=== PATIENT | female | born 1935 | race Caucasian/White ===

== ENCOUNTER 2016-08-09 09:52 | Outpatient (CLI) | payer MEDICARE, OTHER | END 2016-08-09 09:53 | disposition home or self-care (01) | DX: M79.672 Pain in left foot (principal); M19.072 Primary osteoarthritis, left ankle and foot ==

== ENCOUNTER 2016-09-30 16:07 | Outpatient (CLI) | payer MEDICARE, OTHER ==
--- NOTE | 2016-10-01 10:50 | XRAY Report ---
THREE VIEW RIGHT SHOULDER: 09/30/2016 CLINICAL HISTORY: Pain. FINDINGS: Degenerative changes are noted involving the glenohumeral joint with marked narrowing, sub chondral sclerosis and osteophytic formation. Mild degenerative changes are present at the AC joint. There is no fracture or focus of destruction. The soft tissues are within normal limits. The visualized lung apex is clear. NOTE: Diffuse demineralization does limit full characterization of the cortices. IMPRESSION: ADVANCED DEGENERATIVE CHANGES OF THE GLENOHUMERAL JOINT. NO ACUTE FRACTURE OR MALALIGNME NT. JOB #: [id number] EXT JOB #:[id number]
--- NOTE | 2016-10-01 10:51 | XRAY Report ---
THREE VIEW RIGHT ELBOW: 09/30/2016 CLINICAL HISTORY: Pain. FINDINGS: Patchy bony demineralization is noted. There is no fracture, focus of destruction or malalignment. There is no intraarticular joint effusion . IMPRESSION: 1. NO ACUTE PROCESS. 2. MILD DEGENERATIVE CHANGES. JOB #: [id number] EXT JOB #:[id number]
== END 2016-09-30 16:08 | disposition home or self-care (01) ==
LOC: DI 16:07
PROVIDERS: ATTEND Family Medicine
DX: M19.011 Primary osteoarthritis, right shoulder (principal); M19.021 Primary osteoarthritis, right elbow

== ENCOUNTER 2016-11-26 11:36 | Outpatient (CLI) | payer MEDICARE, OTHER ==
--- NOTE | 2016-11-26 13:15 | XRAY Report ---
TWO VIEW CHEST: 11/26/2016 CLINICAL INDICATION: Abdominal pain, possible foreign body. FINDINGS: Frontal and lateral views of the chest demonstrate a normal cardiac silhouette. The lungs are clear. No effusion or pneumothorax is evident. IMPRESSION: NO EVIDENCE OF ACUTE CARDIOPULMONARY DISEASE. JOB #: [id number] EXT JOB #:[id number]
--- NOTE | 2016-11-26 13:39 | XRAY Report ---
TWO-VIEW ABDOMEN: 11/26/2016 CLINICAL INDICATION: Pain, possible foreign body. FINDINGS: Supine and upright views of the abdomen demonstrate a normal bowel gas pattern. No small bowel dilatation is present. Surgical clips from cholecystectomy are stable from CT of 04/04/2008. No radiopaque foreign body is appreciated in the soft tissues. IMPRESSION: NO EVIDENCE OF BOWEL OBSTRUCTION OR PERFORATION. POSTOPERATIVE CHANGES. JOB #: [id number] EXT JOB #:[id number]
== END 2016-11-26 11:37 | disposition home or self-care (01) ==
LOC: DI 11:36
PROVIDERS: ATTEND Family Medicine
DX: R10.9 Unspecified abdominal pain (principal); Z90.49 Acquired absence of other specified parts of digestive tract
CPT/HCPCS: 71020; 74020

== ENCOUNTER 2018-05-25 11:54 | Emergency (ER) | payer MEDICARE, OTHER ==
[2018-05-25 12:22] LABS: BASOPHILS % (AUTO) 0.3 %; EOSINOPHILS # (AUTO) 0.1 10^3/uL (0.0-0.7); EOSINOPHILS % (AUTO) 1.3 %; LYMPHOCYTES # (AUTO) 0.8 10^3/uL (1.5-3.5); LYMPHOCYTES % (AUTO) 11.1 %; MEAN CORPUSCULAR HEMOGLOBIN 20.4 pg (27.0-31.0); MEAN CORPUSCULAR VOLUME 65.7 fL (81.0-99.0); MEAN PLATELET VOLUME 7.3 fL (7.9-10.8); MONOCYTES # (AUTO) 0.9 10^3/uL (0.0-1.0); MONOCYTES % (AUTO) 12.2 %; NEUTROPHILS # (AUTO) 5.3 10^3/uL (1.5-6.6); NEUTROPHILS % (AUTO) 75.1 %; PLT - PLATELET COUNT 274 10^3/uL (130-450); RED BLOOD COUNT 4.42 10^6/uL (4.20-5.40); WHITE BLOOD COUNT 7.1 x10^3/uL (4.8-10.8)
[2018-05-25 12:31] LABS: ALBUMIN 3.6 g/dL (3.2-5.5); ALBUMIN/GLOBULIN RATIO 1.1 (1.0-2.2); BILIRUBIN,TOTAL 0.5 mg/dL (0.2-1.0); CALCIUM 8.9 mg/dL (8.5-10.3); CREATININE 0.9 mg/dL (0.4-1.0)
[2018-05-25 12:37] LABS: PLATELET ESTIMATE, MANUAL NORMAL (130-450,000) (NORMAL); PLATELET MORPHOLOGY NORMAL APPEARANCE (NORMAL)
--- NOTE | 2018-05-25 12:42 | ED Physician Documentation ---
History of Present Illness - Stated complaint Stated Complaint: DIZZY/WEAKNESS - Chief complaint Chief Complaint: General - History obtained from History obtained from: Patient, Family - History of Present Illness Timing: Today Pain level max: 2 Pain level now: 2 Improved by: Rest Worsened by: Walking - Additonal information Additional information: Patient is an 83-year-old female who presents to the emergency department stating that she had a basal cell carcinoma removed a few days ago and is concerned the wound is becoming infected. [place] very weak today at home. Has felt more out of breath with walking over the past few days. Her blood sugars have been higher than usual. Does not have a history of acute coronary syndrome or congestive heart failure. No fevers. No cough. No vomiting. No abdominal pain. Review of Systems Ten Systems: 10 systems reviewed and negative Constitutional: denies: Fever, Chills Ears: denies: Ear pain Nose: denies: Rhinorrhea / runny nose, Congestion Throat: denies: Sore throat Cardiac: denies: Chest pain / pressure, Palpitations Respiratory: denies: Cough, Hemoptysis, Wheezing GI: denies: Abdominal Pain, Nausea, Vomiting Skin: denies: Rash Musculoskeletal: denies: Neck pain, Back pain PD PAST MEDICAL HISTORY - Past Medical History Cardiovascular: Hypertension, High cholesterol, Atrial fibrillation Respiratory: None Endocrine/Autoimmune: Type 2 diabetes GI: Hiatal hernia : None HEENT: None Psych: None Musculoskeletal: None Derm: None - Past Surgical History Past Surgical History: Yes General: Cholecystectomy, Appendectomy 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 HEENT: Tonsil/Adenoidectomy - Present Medications Home Medications: Ambulatory Orders Medication Instructions Recorded Confirmed Ascorbic Acid [Vitamin C] 1,000 mg PO DAILY 05/02/14 06/28/15 Cholecalciferol (Vitamin D3) 1,000 unit PO DAILY 05/02/14 05/25/18 [Vitamin D] Digoxin [Lanoxin] 0.125 mg PO DAILY 05/02/14 05/25/18 Lansoprazole 15 mg PO DAILY 05/02/14 05/25/18 Lisinopril 10 mg PO DAILY 05/02/14 05/25/18 Magnesium Oxide [Magox 400] 400 mg PO DAILY 05/02/14 05/25/18 Multivitamin [Multi-Day Vitamins] 1 each PO DAILY 05/02/14 05/25/18 [place]-3/Dha/Epa/Fish Oil [Fish Oil] 1,000 mg PO BID 05/02/14 05/25/18 Vitamin E 400 unit PO DAILY 05/02/14 05/25/18 Warfarin [Coumadin] 7.5 mg PO 1400 05/02/14 05/25/18 Gluc/Niranjan-MSM#1/Vit C/Monty/Bor 1 tab ORAL DAILY 06/28/15 05/25/18 [Ecwnofq-Gniuz-IKL Complex Cplt] Insulin Glargine,Hum.rec.anlog 42 units SQ DAILY 06/28/15 05/25/18 [Lantus Solostar] Liraglutide [Victoza 2-Berhane] 1.8 units SQ DAILY 06/28/15 05/25/18 Metoprolol Tartrate 50 mg ORAL Q8HR 06/28/15 05/25/18 Pravastatin Sodium 80 mg PO DAILY 06/28/15 05/25/18 Cephalexin [Keflex] 500 mg PO Q6H #28 capsule 05/25/18 hydroCHLOROthiazide 0.5 tab ORAL DAILY 05/25/18 05/25/18 [Hydrochlorothiazide] - Allergies Allergies/Adverse Reactions: Allergies Allergy/AdvReac Type Severity Reaction Status Date / Time codeine AdvReac Nausea Verified 05/25/18 12:09 - Social History Does the pt smoke?: No Smoking Status: Never smoker Does the pt drink ETOH?: Yes Does the pt have substance abuse?: No - Immunizations Immunizations are current?: Yes PD ED PE NORMAL - Vitals Vital signs reviewed: Yes - General General: Alert and oriented X 3, No acute distress - HEENT HEENT: Other (Dry lips. Incision to the left upper forehead has moderate surrounding erythema, no drainage or fluctuance. It is warm to the touch and painful.) - Neck Neck: Supple, no meningeal sign - Cardiac Cardiac: RRR, Strong equal pulses - Respiratory Respiratory: No respiratory distress, Clear bilaterally - Abdomen Abdomen: Soft, Non tender, Non distended - Back Back: No spinal TTP - Derm Derm: Warm and dry, No rash - Extremities Extremities: Other (1+ bilateral lower extremity edema) - Neuro Neuro: Alert and oriented X 3 - Psych Psych: Normal mood, Normal affect Results - Vitals Vitals: Vital Signs - 24 hr 05/25/18 05/25/1805/25/18 12:01 12:30 13:11 Temperature 36.9 C 36.9 C Heart Rate 74 67 70 Respiratory 16 13 16 Rate Blood Pressure 155/63 H 137/50 H 140/53 H O2 Saturation 99 97 96 05/25/18 13:30 Temperature Heart Rate 71 Respiratory 16 Rate Blood Pressure 143/70 H O2 Saturation 99 Oxygen O2 Source Room air - EKG (time done) 1217 Rate: Rate (enter#) (68) Rhythm: NSR [place]: Normal Intervals: Normal [place] QRS: Normal Ischemia: Normal ST segments, Q waves (V1-2) - Labs Labs: Laboratory Tests 05/25/18 05/25/18 05/25/18 12:05 12:05 12:05 WBC 7.1 RBC 4.42 Hgb 9.0 L Hct 29.0 L MCV 65.7 L MCH 20.4 L MCHC 31.0 L RDW 19.0 H Plt Count 274 MPV 7.3 L Neut # (Auto) 5.3 Lymph # (Auto) 0.8 L [place] # (Auto) 0.9 Eos # (Auto) 0.1 Baso # (Auto) 0.0 Absolute Nucleated RBC 0.00 Nucleated RBC % 0.1 Manual Slide Review Indicated Platelet Estimate NORMAL (130-450,000) Platelet Morphology NORMAL APPEARANCE RBC Morph Micro Appear 1+ OVALOCYTES PT INR Sodium 132 L Potassium 4.2 Chloride 95 L Carbon Dioxide 28 Anion Gap 9.0 BUN 37 H Creatinine 0.9 Estimated GFR (MDRD) 60 L Glucose 219 H POC Whole Bld Glucose Calcium 8.9 Total Bilirubin 0.5 AST 21 ALT 29 Alkaline Phosphatase 113 Troponin I < 0.04 B-Natriuretic Peptide Total Protein 7.0 Albumin 3.6 Globulin 3.4 Albumin/Globulin Ratio 1.1 Lipase 38 Urine Color Urine Clarity Urine pH Ur Specific [place] Urine Protein Urine Glucose (UA) Urine Ketones Urine Occult Blood Urine Nitrite Urine Bilirubin Urine Urobilinogen Ur Leukocyte Esterase Urine RBC Urine WBC Ur Squamous Epith Cells Urine Bacteria Ur Microscopic Review Urine Culture Comments 05/25/18 05/25/18 05/25/18 12:05 12:05 12:07 WBC RBC Hgb Hct MCV MCH MCHC RDW Plt Count MPV Neut # (Auto) Lymph # (Auto) [place] # (Auto) Eos # (Auto) Baso # (Auto) Absolute Nucleated RBC Nucleated RBC % Manual Slide Review Platelet Estimate Platelet Morphology RBC Morph Micro Appear PT 16.3 H INR 1.5 H Sodium Potassium Chloride Carbon Dioxide Anion Gap BUN Creatinine Estimated GFR (MDRD) Glucose POC Whole Bld Glucose 220 H Calcium Total Bilirubin AST ALT Alkaline Phosphatase Troponin I B-Natriuretic Peptide 43 Total Protein Albumin Globulin Albumin/Globulin Ratio Lipase Urine Color Urine Clarity Urine pH Ur Specific [place] Urine Protein Urine Glucose (UA) Urine Ketones Urine Occult Blood Urine Nitrite Urine Bilirubin Urine Urobilinogen Ur Leukocyte Esterase Urine RBC Urine WBC Ur Squamous Epith Cells Urine Bacteria Ur Microscopic Review Urine Culture Comments 05/25/18 14:00 WBC RBC Hgb Hct MCV MCH MCHC RDW Plt Count MPV Neut # (Auto) Lymph # (Auto) [place] # (Auto) Eos # (Auto) Baso # (Auto) Absolute Nucleated RBC Nucleated RBC % Manual Slide Review Platelet Estimate Platelet Morphology RBC Morph Micro Appear PT INR Sodium Potassium Chloride Carbon Dioxide Anion Gap BUN Creatinine Estimated GFR (MDRD) Glucose POC Whole Bld Glucose Calcium Total Bilirubin AST ALT Alkaline Phosphatase Troponin I B-Natriuretic Peptide Total Protein Albumin Globulin Albumin/Globulin Ratio Lipase Urine Color YELLOW Urine Clarity CLEAR Urine pH 6.0 Ur Specific [place] 1.010 Urine Protein NEGATIVE Urine Glucose (UA) NEGATIVE Urine Ketones NEGATIVE Urine Occult Blood NEGATIVE Urine Nitrite NEGATIVE Urine Bilirubin NEGATIVE Urine Urobilinogen 0.2 (NORMAL) Ur Leukocyte Esterase TRACE H Urine RBC 0-5 Urine WBC 4-5 Ur Squamous Epith Cells NONE SEEN Urine Bacteria None Seen Ur Microscopic Review INDICATED Urine Culture Comments INDICATED - Rads (name of study) cxr Radiology: Prelim report reviewed, EMP read contemporaneously, See rad report (normal) PD MEDICAL DECISION MAKING - ED course Complexity details: reviewed results, re-evaluated patient, considered differential, d/w patient, d/w family ED course: Patient is an 83-year-old female with what appears to be hyperglycemia leading to dehydration as well as a mild cellulitis to recent surgical wound on her left upper forehead. Will place on Keflex. Feels much better after IV fluids. Tolerating p.o. without difficulty. No focal neurological deficits. No acute laboratory abnormalities. She is well-appearing, nontoxic. No evidence of sepsis. Patient counseled regarding signs and symptoms for which I believe and urgent re-evaluation would be necessary. Patient with good understanding of and agreement to plan and is comfortable going home at this time This document was made in part using voice recognition software. While efforts are made to proofread this document, sound alike and grammatical errors may elsau rAlex Departure - Departure Disposition: 01 Home, Self Care Clinical Impression: Wound infection after surgery, Dehydration Cellulitis Qualifiers: Site of cellulitis: face Qualified Code(s): L03.211 - Cellulitis of face Condition: Good Instructions: ED Infec Skin Cellulitis Follow-Up: Ronnie Key MD [Primary Care Provider] - Within 3 Days Prescriptions: Cephalexin [Keflex] 500 mg PO Q6H #28 capsule Comments: Take all antibiotics until gone. Return if you worsen. Discharge Date/Time: 05/25/18 14:15
[2018-05-25] MEDS ORDERED: SODIUM CHLORIDE 0.9% 1,000 ML IV ONE (12:52)
[2018-05-25 13:09] LABS: INR 1.5 (0.8-1.2); PT - PROTHROMBIN TIME 16.3 secs (9.9-12.6)
--- NOTE | 2018-05-25 13:23 | XRAY Report ---
Reason: dyspnea Procedure Date: 05/25/2018 Accession Number: [id number] / [id number] Procedure: XR - Chest 1 View X-Ray CPT Code: 58053 FULL RESULT: EXAM: CHEST RADIOGRAPHY EXAM DATE: 05/25/2018 01:18 PM. CLINICAL HISTORY: Dyspnea. COMPARISON: CHEST 2 VIEW PA/LAT 11/26/2016 11:59 AM. TECHNIQUE: 1 view. FINDINGS: Lungs/Pleura: No focal opacities evident. No pleural effusion. No pneumothorax. Mediastinum: Within exam limitations, the cardiomediastinal contour is normal. Other: None. IMPRESSION: Normal single view chest. RADIA
[2018-05-25 14:11] VITALS: BP 143/70
[2018-05-25 14:13] LABS: BILIRUBIN,URINE NEGATIVE (NEGATIVE); GLUCOSE, URINE (UA) NEGATIVE (NEGATIVE); KETONES,URINE (UA) NEGATIVE (NEGATIVE); LEUKOCYTE ESTERASE, URINE TRACE (NEGATIVE); NITRITE,URINE NEGATIVE (NEGATIVE); OCCULT BLOOD,URINE NEGATIVE (NEGATIVE); PROTEIN,URINE NEGATIVE (NEGATIVE); UROBILINOGEN,URINE 0.2 (NORMAL) E.U./dL (NORMAL)
[2018-05-25 14:20] LABS: BACTERIA,URINE None Seen /HPF (None Seen); CLARITY,URINE CLEAR (CLEAR); RBC,URINE 0-5 /HPF (0-5); SQUAMOUS EPITHELIAL CELL,UR NONE SEEN (<= Few)
== END 2018-05-25 14:15 | disposition home or self-care (01) ==
LOC: ED 11:54
DX: T81.49XA Infection following a procedure, other surgical site, initial encounter (principal); L03.211 Cellulitis of face; E86.0 Dehydration; E11.65 Type 2 diabetes mellitus with hyperglycemia; I10 Essential (primary) hypertension; I48.91 Unspecified atrial fibrillation; Z79.01 Long term (current) use of anticoagulants; Z79.4 Long term (current) use of insulin
CPT/HCPCS: 36415; 71045; 80053; 81001; 81003; 83690; 83880; 84484; 85025; 85610; 87086; 93005; 96360; 99284

== ENCOUNTER 2018-06-11 04:35 | Outpatient (CLI) | payer MEDICARE, OTHER | END 2018-06-11 04:36 | disposition EMS.NT | LOC: EMS 04:35 | PROVIDERS: ATTEND Surgery | DX: Z03.89 Encounter for observation for other suspected diseases and conditions ruled out (principal) ==

== ENCOUNTER 2019-11-30 18:21 | Outpatient (CLI) | payer MEDICARE, OTHER | END 2019-11-30 18:22 | disposition home or self-care (01) | LOC: COV 18:21 | PROVIDERS: ATTEND Family Medicine | DX: R05 Cough (principal); R06.02 Shortness of breath; R53.83 Other fatigue; J02.9 Acute pharyngitis, unspecified | CPT/HCPCS: 81599 ==

== ENCOUNTER 2020-03-03 06:23 | Emergency (ER) | payer MEDICARE, OTHER ==
--- NOTE | 2020-03-03 08:12 | XRAY Report ---
PROCEDURE: Chest 1 View X-Ray INDICATIONS: chest pain TECHNIQUE: One view of the chest was acquired. COMPARISON: 05/25/2018 FINDINGS: Surgical changes and devices: None. Lungs and pleura: No pleural effusions or pneumothorax. Lungs are clear. Mediastinum: Mediastinal contours appear normal. Heart size is normal. Bones and chest wall: No suspicious bony lesions. Overlying soft tissues appear unremarkable. IMPRESSION: No evidence acute pulmonary process. Reviewed by: Ravin Monroy MD on 03/03/2020 8:11 AM PDT Approved by: Ravin Monroy MD on 03/03/2020 8:11 AM PDT Station ID: [id number]
[2020-03-03 08:16] LABS: BASOPHILS % (AUTO) 0.5 %; EOSINOPHILS # (AUTO) 0.1 10^3/uL (0.0-0.7); EOSINOPHILS % (AUTO) 2.2 %; HGB - HEMOGLOBIN 8.1 g/dL (12.0-16.0); LYMPHOCYTES # (AUTO) 1.2 10^3/uL (1.5-3.5); LYMPHOCYTES % (AUTO) 19.7 %; MEAN CORPUSCULAR HEMOGLOBIN 17.8 pg (27.0-31.0); MEAN CORPUSCULAR HGB CONC 27.5 g/dL (32.0-36.0); MEAN CORPUSCULAR VOLUME 64.8 fL (81.0-99.0); MEAN PLATELET VOLUME 9.5 fL (7.9-10.8); MONOCYTES # (AUTO) 0.7 10^3/uL (0.0-1.0); MONOCYTES % (AUTO) 11.3 %; NEUTROPHILS # (AUTO) 3.9 10^3/uL (1.5-6.6); PLT - PLATELET COUNT 259 10^3/uL (130-450); RED BLOOD COUNT 4.55 10^6/uL (4.20-5.40); RED CELL DISTRIBUTION WIDTH 19.9 % (12.0-15.0); WHITE BLOOD COUNT 5.9 x10^3/uL (4.8-10.8)
[2020-03-03 08:23] LABS: INR 3.2 (0.8-1.2); PT - PROTHROMBIN TIME 33.7 secs (9.9-12.6)
[2020-03-03 08:36] LABS: ALBUMIN 3.9 g/dL (3.2-5.5); ALBUMIN/GLOBULIN RATIO 1.3 (1.0-2.2); BILIRUBIN,TOTAL 0.5 mg/dL (0.2-1.0); CREATININE 0.8 mg/dL (0.4-1.0); TOTAL PROTEIN 6.8 g/dL (6.7-8.2)
[2020-03-03 08:37] LABS: BILIRUBIN,URINE NEGATIVE (NEGATIVE); CLARITY,URINE CLEAR (CLEAR); GLUCOSE, URINE (UA) NEGATIVE (NEGATIVE); KETONES,URINE (UA) NEGATIVE (NEGATIVE); LEUKOCYTE ESTERASE, URINE NEGATIVE (NEGATIVE); NITRITE,URINE NEGATIVE (NEGATIVE); OCCULT BLOOD,URINE NEGATIVE (NEGATIVE); PROTEIN,URINE NEGATIVE (NEGATIVE); UROBILINOGEN,URINE 0.2 (NORMAL) E.U./dL (NORMAL)
[2020-03-03] MEDS ORDERED: SODIUM CHLORIDE 0.9% 500 ML IV STA (08:40)
--- NOTE | 2020-03-03 08:40 | ED Physician Documentation ---
PD HPI DYSPNEA - Stated complaint Stated Complaint: SOA - Chief complaint Chief Complaint: Resp - History obtained from History obtained from: Patient - History of Present Illness Timing - onset: Last night Timing - onset during: Rest Timing - duration: Hours Timing - details: Intermittant Improved by: Rest, Sitting up Worsened by: Exertion, Laying flat Associated symptoms: No: Fever, Cough, Hemoptysis, Wheezing, Chest pain / discomfort, Palpitations, Diaphoresis, Bilateral edema, Unilateral edema Similar symptoms before: No diagnosis Recently seen: Clinic - Additional information Additional information: 84-year-old diabetic female with a history of atrial fibrillation was on Coumadin has developed exertional dyspnea that is progressively worsening as w ell as some orthopnea. She indicates that she will have to go out and sit in her recliner at night to sleep. She is having to sit up at the side of the bed to catch her breath. She denies any use of Lasix and states that she is on some hydrochlorothiazide. She does not have a history of congestive heart failure that she is aware of. She states that her legs are not currently swollen. She is not currently short of breath in the emergency department. Review of Systems Constitutional: denies: Fever Eyes: denies: Decreased vision Ears: denies: Ear pain Nose: denies: Rhinorrhea / runny nose, Congestion Throat: denies: Dental pain / toothache, Oral lesions / sores Cardiac: denies: Chest pain / pressure, Palpitations, Pedal edema, Calf pain Respiratory: reports: Dyspnea. 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 HEENT: Tonsil/Adenoidectomy - Present Medications Home Medications: Ambulatory Orders Medication Instructions Recorded Confirmed Ascorbic Acid [Vitamin C] 1,000 mg PO DAILY 05/02/14 06/28/15 Cholecalciferol (Vitamin D3) 1,000 unit PO DAILY 05/02/14 05/25/18 [Vitamin D] Digoxin [Lanoxin] 0.125 mg PO DAILY 05/02/14 05/25/18 Lansoprazole 15 mg PO DAILY 05/02/14 05/25/18 Lisinopril 10 mg PO DAILY 05/02/14 05/25/18 Magnesium Oxide [Magox 400] 400 mg PO DAILY 05/02/14 05/25/18 Multivitamin [Multi-Day Vitamins] 1 each PO DAILY 05/02/14 05/25/18 [place]-3/Dha/Epa/Fish Oil [Fish Oil] 1,000 mg PO BID 05/02/14 05/25/18 Vitamin E 400 unit PO DAILY 05/02/14 05/25/18 Warfarin [Coumadin] 7.5 mg PO 1400 05/02/14 05/25/18 Glucosam/Chond-Msm1/C/Monty/Bor 1 tab ORAL DAILY 06/28/15 05/25/18 [Ovroodt-Agdtn-SNH Complex Cplt] Insulin Glargine,Hum.rec.anlog 42 units SQ DAILY 06/28/15 05/25/18 [Lantus Solostar] Liraglutide [Victoza 2-Berhane] 1.8 units SQ DAILY 06/28/15 05/25/18 Metoprolol Tartrate 50 mg ORAL Q8HR 06/28/15 05/25/18 Pravastatin Sodium 80 mg PO DAILY 06/28/15 05/25/18 Cephalexin [Keflex] 500 mg PO Q6H #28 capsule 05/25/18 hydroCHLOROthiazide 0.5 tab ORAL DAILY 05/25/18 05/25/18 [Hydrochlorothiazide] - Allergies Allergies/Adverse Reactions: Allergies Allergy/AdvReac Type Severity Reaction Status Date / Time codeine AdvReac Nausea Verified 03/03/20 06:32 - Social History Does the pt smoke?: No Smoking Status: Never smoker Does the pt drink ETOH?: Yes Does the pt have substance abuse?: No - Immunizations Immunizations are current?: Yes - POLST Patient has POLST: No PD ED PE NORMAL - Vitals Vital signs reviewed: Yes (hypertensive ) - General General: Alert and oriented X 3, No acute distress, Well developed/nourished - HEENT HEENT: Atraumatic, PERRL, EOMI - Neck Neck: Supple, no meningeal sign, No bony TTP - Cardiac Cardiac: RRR, No murmur - Respiratory Respiratory: No respiratory distress, Clear bilaterally - Abdomen Abdomen: Normal bowel sounds, Soft, Non tender, Non distended, No organomegaly - Back Back: No CVA TTP, No spinal TTP - Derm Derm: Normal color, Warm and dry, No rash - Extremities Extremities: No deformity, No tenderness to palpate, Normal ROM s pain, No edema, No calf tenderness / cord - Neuro Neuro: Alert and oriented X 3 Eye Opening: To Voice Motor: Obeys Commands Verbal: Oriented GCS Score: 14 - Psych Psych: Normal mood, Normal affect Results - Vitals Vitals: Vital Signs - 24 hr 03/03/20 03/03/20 06:20 08:31 Temperature 37.2 C Heart Rate 77 74 Respiratory 16 22 Rate Blood Pressure 170/68 H 166/57 H O2 Saturation 98 97 Oxygen O2 Source Room air - EKG (time done) 0749 Rate: Rate (enter#) (72) Ischemia: Q waves (consistent with inferior and anterior infarcts) Compare to prior EKG: Changed from prior EKG (SPT 05/25/2018 the inferior q waves have developed. ) Computer interpretation: Agree with computer - Labs Labs: Laboratory Tests 03/03/20 03/03/20 03/03/20 08:00 08:00 08:00 WBC 5.9 RBC 4.55 Hgb 8.1 L Hct 29.5 L MCV 64.8 L MCH 17.8 L MCHC 27.5 L RDW 19.9 H Plt Count 259 MPV 9.5 Neut # (Auto) 3.9 Lymph # (Auto) 1.2 L [place] # (Auto) 0.7 Eos # (Auto) 0.1 Baso # (Auto) 0.0 Absolute Nucleated RBC 0.00 Nucleated RBC % 0.0 PT 33.7 H INR 3.2 H Sodium 137 Potassium 3.8 Chloride 101 Carbon Dioxide 26 Anion Gap 10.0 BUN 37 H Creatinine 0.8 Estimated GFR (MDRD) 68 L Glucose 108 H Calcium 9.0 Total Bilirubin 0.5 AST 22 ALT 17 Alkaline Phosphatase 72 Troponin I High Sens B-Natriuretic Peptide Total Protein 6.8 Albumin 3.9 Globulin 2.9 Albumin/Globulin Ratio 1.3 Lipase 44 Urine Color Urine Clarity Urine pH Ur Specific [place] Urine Protein Urine Glucose (UA) Urine Ketones Urine Occult Blood Urine Nitrite Urine Bilirubin Urine Urobilinogen Ur Leukocyte Esterase Ur Microscopic Review Urine Culture Comments 03/03/20 03/03/20 03/03/20 08:00 08:00 08:13 WBC RBC Hgb Hct MCV MCH MCHC RDW Plt Count MPV Neut # (Auto) Lymph # (Auto) [place] # (Auto) Eos # (Auto) Baso # (Auto) Absolute Nucleated RBC Nucleated RBC % PT INR Sodium Potassium Chloride Carbon Dioxide Anion Gap BUN Creatinine Estimated GFR (MDRD) Glucose Calcium Total Bilirubin AST ALT Alkaline Phosphatase Troponin I High Sens 5.9 B-Natriuretic Peptide 52 Total Protein Albumin Globulin Albumin/Globulin Ratio Lipase Urine Color YELLOW Urine Clarity CLEAR Urine pH 7.0 Ur Specific [place] 1.020 Urine Protein NEGATIVE Urine Glucose (UA) NEGATIVE Urine Ketones NEGATIVE Urine Occult Blood NEGATIVE Urine Nitrite NEGATIVE Urine Bilirubin NEGATIVE Urine Urobilinogen 0.2 (NORMAL) Ur Leukocyte Esterase NEGATIVE Ur Microscopic Review NOT INDICATED Urine Culture Comments NOT INDICATED - Rads (name of study) chest Radiology: Prelim report reviewed (Impression: No evidence of acute pulmonary process.), EMP read indepedently, See rad report PD MEDICAL DECISION MAKING - ED course Complexity details: reviewed old records, reviewed results, re-evaluated patient, considered differential, d/w patient ED course: 84-year-old female with exertional dyspnea and orthopnea does not evidence of acute failure. Her BNP is negative, her IVC is collapsing completely and her CXR is without evidence of edema. I suspect she may have some diastolic dysfunction and we have given her a 500ml bolus of saline. 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 Departure - Departure Disposition: 01 Home, Self Care Clinical Impression: Dehydration Dyspnea Qualifiers: Dyspnea type: dyspnea on exertion Qualified Code(s): R06.00 - Dyspnea, unspecified Condition: Stable Instructions: ED Dehydration, ED Dyspnea Shortness of Breath Follow-Up: Ronnie Key MD [Primary Care Provider] - Comments: The symptoms you are having are consistent with congestive heart failure. Today we suspect this may be related to something called diastolic dysfunction. When there is not enough fluid in your system your heart will not work normally. We have given you some extra fluid. 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 Follow-up with Dr. Key for referral.
[2020-03-03 10:14] VITALS: BP 149/50
== END 2020-03-03 11:16 | disposition home or self-care (01) ==
LOC: EDUNIT# → ED 06:23
DX: E86.0 Dehydration (principal); R06.09 Other forms of dyspnea; R06.01 Orthopnea; R94.31 Abnormal electrocardiogram [ECG] [EKG]; I48.91 Unspecified atrial fibrillation; Z79.01 Long term (current) use of anticoagulants; I10 Essential (primary) hypertension; E11.9 Type 2 diabetes mellitus without complications; Z79.4 Long term (current) use of insulin
CPT/HCPCS: 36415; 71045; 80053; 81001; 81003; 83690; 83880; 84484; 85025; 85610; 87086; 93005; 96360; 99284

== ENCOUNTER 2020-03-28 18:51 | Outpatient (CLI) | payer MEDICARE, OTHER | END 2020-03-28 18:52 | disposition critical access hospital (66) | LOC: EMS 18:51 | PROVIDERS: ATTEND Surgery | DX: S09.90XA Unspecified injury of head, initial encounter (principal); R55 Syncope and collapse; W18.39XA Other fall on same level, initial encounter; Y92.002 Bathroom of unspecified non-institutional (private) residence as the place of occurrence of the external cause | CPT/HCPCS: A0425; A0427 ==

== ENCOUNTER 2020-03-28 19:10 | Emergency (ER) | payer MEDICARE, OTHER ==
--- NOTE | 2020-03-28 19:14 | ED Physician Documentation ---
History of Present Illness - Stated complaint Stated Complaint: SYNCOPE, HIT HEAD - History obtained from History obtained from: Patient - Additonal information Additional information: the patient is a 84 y/o insulin dependent diabetic on coumadin for atrial fibrillation brought in by ems after she woke up on the floor. the patient is c/o of some right sided face swelling and head pain. she denies any cp/sob, neck pain, abd pain, fevers or dysuria, weakness. denies difficulty speaking or unilateral weakness. Review of Systems Constitutional: reports: Reviewed and negative Eyes: reports: Reviewed and negative Ears: reports: Reviewed and negative Nose: reports: Reviewed and negative Throat: reports: Reviewed and negative Cardiac: reports: Reviewed and negative Respiratory: reports: Reviewed and negative GI: reports: Reviewed and negative : reports: Reviewed and negative Skin: reports: Reviewed and negative Musculoskeletal: reports: Reviewed and negative Neurologic: reports: Head injury Psychiatric: reports: Reviewed and negative Endocrine: reports: Reviewed and negative Immunocompromised: reports: Reviewed and negative PD PAST MEDICAL HISTORY - Past Medical History Cardiovascular: Hypertension, High cholesterol, Atrial fibrillation Respiratory: None Endocrine/Autoimmune: Type 2 diabetes GI: Hiatal hernia : None HEENT: None Psych: None Musculoskeletal: None Derm: None - Past Surgical History Past Surgical History: Yes General: Cholecystectomy, Appendectomy 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 HEENT: Tonsil/Adenoidectomy - Present Medications Home Medications: Ambulatory Orders Medication Instructions Recorded Confirmed Ascorbic Acid [Vitamin C] 1,000 mg PO DAILY 05/02/14 06/28/15 Cholecalciferol (Vitamin D3) 1,000 unit PO DAILY 05/02/14 05/25/18 [Vitamin D] Digoxin [Lanoxin] 0.125 mg PO DAILY 05/02/14 05/25/18 Lansoprazole 15 mg PO DAILY 05/02/14 05/25/18 Lisinopril 10 mg PO DAILY 05/02/14 05/25/18 Magnesium Oxide [Magox 400] 400 mg PO DAILY 05/02/14 05/25/18 Multivitamin [Multi-Day Vitamins] 1 each PO DAILY 05/02/14 05/25/18 [place]-3/Dha/Epa/Fish Oil [Fish Oil] 1,000 mg PO BID 05/02/14 05/25/18 Vitamin E 400 unit PO DAILY 05/02/14 05/25/18 Warfarin [Coumadin] 7.5 mg PO 1400 05/02/14 05/25/18 Glucosam/Chond-Msm1/C/Monty/Bor 1 tab ORAL DAILY 06/28/15 05/25/18 [Thlpzot-Xhrlq-VCZ Complex Cplt] Insulin Glargine,Hum.rec.anlog 42 units SQ DAILY 06/28/15 05/25/18 [Lantus Solostar] Liraglutide [Victoza 2-Berhane] 1.8 units SQ DAILY 06/28/15 05/25/18 Metoprolol Tartrate 50 mg ORAL Q8HR 06/28/15 05/25/18 Pravastatin Sodium 80 mg PO DAILY 06/28/15 05/25/18 Cephalexin [Keflex] 500 mg PO Q6H #28 capsule 05/25/18 hydroCHLOROthiazide 0.5 tab ORAL DAILY 05/25/18 05/25/18 [Hydrochlorothiazide] - Allergies Allergies/Adverse Reactions: Allergies Allergy/AdvReac Type Severity Reaction Status Date / Time codeine AdvReac Nausea Verified 03/03/20 06:32 - Social History Does the pt smoke?: No Smoking Status: Never smoker Does the pt drink ETOH?: Yes Does the pt have substance abuse?: No - Immunizations Immunizations are current?: Yes - POLST Patient has POLST: No PD ED PE NORMAL - Vitals Vital signs reviewed: Yes - General General: Alert and oriented X 3, No acute distress, Well developed/nourished - HEENT HEENT: PERRL, Other (subconjunctival hemorrhage of the right eye, no hyphema, no hypopyon, no racoon eyes, no saldana sign, no acute missing teeth) - Neck Neck: Supple, no meningeal sign, No bony TTP, Other (no step offs or deformities of the cervical spine) - Cardiac Cardiac: RRR, No murmur, Strong equal pulses - Respiratory Respiratory: Clear bilaterally - Abdomen Abdomen: Normal bowel sounds, Soft, Non tender, Non distended - Back Back: No spinal TTP - Derm Derm: Warm and dry - Extremities Extremities: No deformity, No tenderness to palpate, Normal ROM s pain, No edema, No calf tenderness / cord - Neuro Neuro: Alert and oriented X 3, 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, No motor deficit, No sensory deficit, Normal speech - Psych Psych: Normal mood, Normal affect Results - Vitals Vitals: Vital Signs - 24 hr 03/28/20 03/28/20 03/28/20 19:10 19:34 19:51 Temperature 37.3 C Heart Rate 71 68 69 Respiratory 20 17 Rate Blood Pressure 146/68 H 142/59 H 145/101 H O2 Saturation 95 100 100 03/28/20 03/28/20 03/28/20 20:21 20:30 21:00 Temperature Heart Rate 80 70 70 Respiratory 19 14 16 Rate Blood Pressure 166/66 H 145/61 H 153/62 H O2 Saturation 96 100 99 03/28/20 21:30 Temperature Heart Rate 73 Respiratory 22 Rate Blood Pressure 162/68 H O2 Saturation 100 Oxygen O2 Source Room air - EKG (time done) 19:30 Rate: Other (no stemi) - Labs Labs: Laboratory Tests 03/28/20 03/28/20 03/28/20 19:15 19:15 19:15 WBC 5.0 RBC 4.31 Hgb 9.1 L Hct 32.9 L MCV 76.3 L MCH 21.1 L MCHC 27.7 L RDW 30.1 H Plt Count 230 MPV 9.2 Neut # (Auto) 3.7 Lymph # (Auto) 0.7 L [place] # (Auto) 0.5 Eos # (Auto) 0.1 Baso # (Auto) 0.0 Absolute Nucleated RBC 0.00 Nucleated RBC % 0.0 Manual Slide Review Indicated WBC Morphology NORMAL APPEARANCE Platelet Estimate NORMAL (130-450,000) Platelet Morphology NORMAL APPEARANCE RBC Morph Micro Appear 1+ MICROCYTOSIS PT 18.1 H INR 1.7 H APTT 30.3 Sodium 135 Potassium 4.0 Chloride 101 Carbon Dioxide 25 Anion Gap 9.0 BUN 30 H Creatinine 1.1 H Estimated GFR (MDRD) 47 L Glucose 109 H Lactic Acid Calcium 8.8 Total Bilirubin 0.5 AST 24 ALT 18 Alkaline Phosphatase 59 Total Creatine Kinase 100 Troponin I High Sens B-Natriuretic Peptide Total Protein 6.4 L Albumin 3.7 Globulin 2.7 Albumin/Globulin Ratio 1.4 Lipase 54 H Urine Color Urine Clarity Urine pH Ur Specific [place] Urine Protein Urine Glucose (UA) Urine Ketones Urine Occult Blood Urine Nitrite Urine Bilirubin Urine Urobilinogen Ur Leukocyte Esterase Urine RBC Urine WBC Ur Squamous Epith Cells Urine Bacteria Ur Microscopic Review Urine Culture Comments 0903/28/20 03/28/20 19:15 19:15 19:33 WBC RBC Hgb Hct MCV MCH MCHC RDW Plt Count MPV Neut # (Auto) Lymph # (Auto) [place] # (Auto) Eos # (Auto) Baso # (Auto) Absolute Nucleated RBC Nucleated RBC % Manual Slide Review WBC Morphology Platelet Estimate Platelet Morphology RBC Morph Micro Appear PT INR APTT Sodium Potassium Chloride Carbon Dioxide Anion Gap BUN Creatinine Estimated GFR (MDRD) Glucose Lactic Acid 1.1 Calcium Total Bilirubin AST ALT Alkaline Phosphatase Total Creatine Kinase Troponin I High Sens 5.6 B-Natriuretic Peptide 62 Total Protein Albumin Globulin Albumin/Globulin Ratio Lipase Urine Color Urine Clarity Urine pH Ur Specific [place] Urine Protein Urine Glucose (UA) Urine Ketones Urine Occult Blood Urine Nitrite Urine Bilirubin Urine Urobilinogen Ur Leukocyte Esterase Urine RBC Urine WBC Ur Squamous Epith Cells Urine Bacteria Ur Microscopic Review Urine Culture Comments 03/28/20 20:20 WBC RBC Hgb Hct MCV MCH MCHC RDW Plt Count MPV Neut # (Auto) Lymph # (Auto) [place] # (Auto) Eos # (Auto) Baso # (Auto) Absolute Nucleated RBC Nucleated RBC % Manual Slide Review WBC Morphology Platelet Estimate Platelet Morphology RBC Morph Micro Appear PT INR APTT Sodium Potassium Chloride Carbon Dioxide Anion Gap BUN Creatinine Estimated GFR (MDRD) Glucose Lactic Acid Calcium Total Bilirubin AST ALT Alkaline Phosphatase Total Creatine Kinase Troponin I High Sens B-Natriuretic Peptide Total Protein Albumin Globulin Albumin/Globulin Ratio Lipase Urine Color YELLOW Urine Clarity CLEAR Urine pH 5.5 Ur Specific [place] 1.025 Urine Protein NEGATIVE Urine Glucose (UA) NEGATIVE Urine Ketones TRACE Urine Occult Blood NEGATIVE Urine Nitrite NEGATIVE Urine Bilirubin NEGATIVE Urine Urobilinogen 0.2 (NORMAL) Ur Leukocyte Esterase SMALL H Urine RBC None Seen Urine WBC 4-5 Ur Squamous Epith Cells FEW Squamous Urine Bacteria None Seen Ur Microscopic Review INDICATED Urine Culture Comments INDICATED PD MEDICAL DECISION MAKING - ED course Complexity details: reviewed results, re-evaluated patient, considered differential (SAH, EDH, SDH, IPH, syncope, hypoglycemia, uti, skull fracture, facial fracture, subconjunctival hemorrhage.), d/w patient, d/w family - Consults Consults: Consulted (name) (dr. bryant raman, trauma attending has accepted this patient, recommends k [facility] and send via life flight. ) Departure - Departure Disposition: 02 Transfer Acute Care Hosp Clinical Impression: Subconjunctival hemorrhage of right eye, Intraparenchymal hemorrhage of brain Condition: Stable Discharge Date/Time: 03/28/20 22:04
[2020-03-28 19:31] LABS: BASOPHILS % (AUTO) 0.4 %; EOSINOPHILS # (AUTO) 0.1 10^3/uL (0.0-0.7); EOSINOPHILS % (AUTO) 2.4 %; HGB - HEMOGLOBIN 9.1 g/dL (12.0-16.0); LYMPHOCYTES # (AUTO) 0.7 10^3/uL (1.5-3.5); LYMPHOCYTES % (AUTO) 14.1 %; MEAN CORPUSCULAR HEMOGLOBIN 21.1 pg (27.0-31.0); MEAN CORPUSCULAR HGB CONC 27.7 g/dL (32.0-36.0); MEAN CORPUSCULAR VOLUME 76.3 fL (81.0-99.0); MEAN PLATELET VOLUME 9.2 fL (7.9-10.8); MONOCYTES # (AUTO) 0.5 10^3/uL (0.0-1.0); MONOCYTES % (AUTO) 9.9 %; NEUTROPHILS # (AUTO) 3.7 10^3/uL (1.5-6.6); NEUTROPHILS % (AUTO) 72.8 %; PLT - PLATELET COUNT 230 10^3/uL (130-450); RED BLOOD COUNT 4.31 10^6/uL (4.20-5.40); RED CELL DISTRIBUTION WIDTH 30.1 % (12.0-15.0)
[2020-03-28 19:37] LABS: INR 1.7 (0.8-1.2); PT - PROTHROMBIN TIME 18.1 secs (9.9-12.6)
[2020-03-28 19:44] LABS: PARTIAL THROMBOPLASTIN TIME 30.3 secs (24.9-33.3); PLATELET ESTIMATE, MANUAL NORMAL (130-450,000) (NORMAL); PLATELET MORPHOLOGY NORMAL APPEARANCE (NORMAL)
[2020-03-28 19:46] LABS: ALBUMIN 3.7 g/dL (3.2-5.5); ALBUMIN/GLOBULIN RATIO 1.4 (1.0-2.2); BILIRUBIN,TOTAL 0.5 mg/dL (0.2-1.0); CALCIUM 8.8 mg/dL (8.5-10.3); CREATININE 1.1 mg/dL (0.4-1.0); TOTAL PROTEIN 6.4 g/dL (6.7-8.2)
--- NOTE | 2020-03-28 20:18 | CT Report ---
PROCEDURE: HEAD WO INDICATIONS: fall head injury TECHNIQUE: Noncontrast 4.5 mm thick angled axial sections acquired from the foramen magnum to the vertex. For r adiation dose reduction, the following was used: automated exposure control, adjustment of mA and/or kV according to patient size. COMPARISON: Prior studies dated 10/11/2010 are not available for review. FINDINGS: Image quality: Excellent. CSF spaces: Basal cisterns are patent. No extra-axial fluid collections. Ventricles are symmetric in size and shape. Brain: No midline shift. No intracranial masses. Thornton-white matter interface is normal. Moderate age-related senescent changes and sequela of chronic small vessel ischemic disease. There is a 6 mm f ocus of hyperattenuation involving the posterior lateral margin of the left temporal lobe likely repr esenting a small parenchymal hemorrhage. Minimal atherosclerotic calcifications of the intracranial i nternal carotid arteries. Skull and face: Calvarium and visualized facial bones are intact, without suspicious lesions. Sinuses: Visualized sinuses and mastoids are clear. IMPRESSION: 1.Small focus of acute intracranial hemorrhage involving the posterior lateral margin of the left tem poral lobe. No mass effect. No midline shift of structures. No calvarial fractures. 2. Age-related senescent changes and sequela of chronic small vessel ischemic disease. Findings were discussed with of the emergency Department staff at 2017 hours. Reviewed by: Octaviano Torres MD on 03/28/2020 8:17 PM PDT Approved by: Octaviano Torres MD on 03/28/2020 8:17 PM PDT Station ID: [id number]
--- NOTE | 2020-03-28 20:20 | CT Report ---
PROCEDURE: MAXILLOFACIAL WO INDICATIONS: fall face injury TECHNIQUE: Noncontrast 1.5 mm thick axial images acquired from the mandible through the frontal sinuses, with co karl and sagittal reformatting. For radiation dose reduction, the following was used: automated ex posure control, adjustment of mA and/or kV according to patient size. COMPARISON: None. FINDINGS: Image quality: Excellent. Bones and teeth: Orbital mishra are intact. Sinus mishra show no fracture or deformity. Nasal bones and septum are intact. Visualized portions of the mandible demonstrate no fractures or subluxation. Zygomatic arches are intact. Pterygoid plates are intact. Visualized portions of the skull base an d auditory canals are intact. Sinuses: Mild mucosal thickening of the bilateral maxillary sinuses and sphenoid sinuses. Remainder t he visualized paranasal sinuses are aerated, without fluid levels, mucosal thickening, or mucoceles. Mastoid air cells are aerated. Soft tissues: Superficial soft tissue contusion involving the right cheek without underlying facial fractures. No masses, or fluid collections. No enlarged lymph nodes. No soft tissue lacerations or debris. Vascular: Visualized vascular structures appear normal in the absence of contrast. Bony vascular fo ramina and canals are intact. IMPRESSION: 1. Right cheek soft tissue swelling/contusion without underlying facial fractures. 2. Mild bilateral maxillary and ethmoid sinus disease. Findings were discussed with of the emergency Department staff at 2017 hours. Reviewed by: Octaviano Torres MD on 03/28/2020 8:19 PM PDT Approved by: Octaviano Torres MD on 03/28/2020 8:19 PM PDT Station ID: [id number]
--- NOTE | 2020-03-28 20:24 | CT Report ---
PROCEDURE: CERVICAL SPINE WO INDICATIONS: fall neck pain TECHNIQUE: Noncontrast 3 mm thick sections acquired from the skull base to the T4 level. Sagittal and coronal r eformats were then constructed. For radiation dose reduction, the following was used: automated exp osure control, adjustment of mA and/or kV according to patient size. COMPARISON: None. FINDINGS: Image quality: Excellent. Bones: No acute fractures or dislocations. Severe multilevel cervical spondylitic changes throughou t the imaged spine but most pronounced from C6-7 through T1-T2. No acute compression fractures. Strai ghtening of normal cervical lordosis likely related to patient positioning and/or concurrent muscle s pasms. C1-C2 relationship is preserved. Craniocervical junction is intact. Moderate multilevel facet arthropathy. Visualized superior ribs are intact. Soft tissues: Prevertebral soft tissues are normal in thickness. No paravertebral hematomas. No ap ical pneumothoraces. IMPRESSION: 1. CT cervical spine without acute fracture or dislocation. 2. Severe multilevel cervical spondylosis. 3. Straightening of cervical lordosis likely related to patient positioning and/or concurrent muscle spasms. Findings were discussed with of the emergency Department staff at 2017 hours. Reviewed by: Octaviano Torres MD on 03/28/2020 8:23 PM PDT Approved by: Octaviano Torres MD on 03/28/2020 8:23 PM PDT Station ID: [id number]
--- NOTE | 2020-03-28 20:25 | XRAY Report ---
PROCEDURE: Chest 1 View X-Ray INDICATIONS: sob TECHNIQUE: One view of the chest was acquired. COMPARISON: 03/03/2020 FINDINGS: Surgical changes and devices: None. Lungs and pleura: No pleural effusions or pneumothorax. Lungs are clear. Mediastinum: Mediastinal contours appear normal. Heart size is normal. Bones and chest wall: No suspicious bony lesions. Overlying soft tissues appear unremarkable. IMPRESSION: Chest without acute cardiopulmonary abnormalities. Reviewed by: Octaviano Torres MD on 03/28/2020 8:24 PM PDT Approved by: Octaviano Torres MD on 03/28/2020 8:24 PM PDT Station ID: [id number]
[2020-03-28 20:28] LABS: BILIRUBIN,URINE NEGATIVE (NEGATIVE); GLUCOSE, URINE (UA) NEGATIVE (NEGATIVE); KETONES,URINE (UA) TRACE mg/dL (NEGATIVE); LEUKOCYTE ESTERASE, URINE SMALL (NEGATIVE); NITRITE,URINE NEGATIVE (NEGATIVE); OCCULT BLOOD,URINE NEGATIVE (NEGATIVE); PH,URINE 5.5 PH (5.0-7.5); PROTEIN,URINE NEGATIVE (NEGATIVE); UROBILINOGEN,URINE 0.2 (NORMAL) E.U./dL (NORMAL)
[2020-03-28 20:30] LABS: CLARITY,URINE CLEAR (CLEAR)
[2020-03-28 20:35] LABS: BACTERIA,URINE None Seen /HPF (None Seen); RBC,URINE None Seen /HPF (0-5); SQUAMOUS EPITHELIAL CELL,UR FEW Squamous (<= Few)
[2020-03-28] MEDS ORDERED: PROTHROMBIN COMPLEX CONC 500 UNIT VIAL IVP STA (21:12)
[2020-03-28 21:44] VITALS: BP 162/68
== END 2020-03-28 22:04 | disposition short-term general hospital (02) ==
LOC: EDUNIT# → ED 19:10
DX: H11.31 Conjunctival hemorrhage, right eye (principal); I61.8 Other nontraumatic intracerebral hemorrhage; E11.9 Type 2 diabetes mellitus without complications; I48.91 Unspecified atrial fibrillation; Z79.01 Long term (current) use of anticoagulants; E78.00 Pure hypercholesterolemia, unspecified; I10 Essential (primary) hypertension; Z91.81 History of falling
CPT/HCPCS: 36415; 70450; 70486; 71045; 72125; 80053; 81001; 82550; 83605; 83690; 83880; 84484; 85025; 85610; 85730; 87086; 93005; 96374; 99285; C9132; 81003

== ENCOUNTER 2020-07-04 14:13 | Outpatient (CLI) | payer MEDICARE, OTHER ==
--- NOTE | 2020-07-04 17:02 | CT Report ---
PROCEDURE: HEAD WO INDICATIONS: INTRACRANIAL HEMORRHAGE TECHNIQUE: Noncontrast 4.5 mm thick angled axial sections acquired from the foramen magnum to the vertex. For r adiation dose reduction, the following was used: automated exposure control, adjustment of mA and/or kV according to patient size. COMPARISON: CT head 03/28/2020 FINDINGS: Image quality: Excellent. The ventricular system and cortical sulci demonstrate atrophy, consistent for patient's stated age. There are areas of hypodensity in the periventricular and subcortical white matter. Previous hyperden sity within the lower left temporal lobe has resolved. However, a new hyperdensity within the superio r right frontal lobe is present measuring 1.4 cm x 1.6 cm x 1.5 cm. There is no midline shift. Minima l surrounding edema is noted. Brainstem is unremarkable. Globes are symmetrical. Sinuses are aerated . Osseous structures are intact. IMPRESSION: 1. Foci of hyperdensity within the right frontal lobe consistent with hemorrhage. Minimal surrounding edema without midline shift is noted. Recommend correlation to recent trauma. It is noted a similar- appearing focus was present in the left temporal lobe on 03/28/2020. While these could be related to tr auma, hemorrhagic ischemia or possibly anticoagulation, recommend correlation to any known neoplastic disease, as hemorrhagic foci cannot be definitively excluded. Further evaluation with MRI with and w ithout contrast is recommended as indicated. The above findings were discussed with Dr. Ronnie Key on 07/03/2020 at 4:55 PM. Reviewed by: Smitha Nunez MD on 07/04/2020 5:01 PM PST Approved by: Smitha Nunez MD on 07/04/2020 5:01 PM PST Station ID: [id number]
--- NOTE | 2020-07-04 17:22 | Ultrasound Report ---
PROCEDURE: Duplex Upr Ext Arterial LT INDICATIONS: LEFT ARM PAIN, NUMBNESS TECHNIQUE: Color and pulse Doppler interrogation was performed of left upper extremity arterial systems, with im age documentation. COMPARISON: None. FINDINGS: Subclavian artery (mid): 117 cm/sec, with triphasic flow. Axillary artery: 95 cm/sec, with triphasic flow. Brachial artery (proximal): 115 cm/sec, with triphasic flow. Radial artery (proximal): 95 cm/sec, with triphasic flow. Radial artery (mid): 104 cm/sec, with triphasic flow. Radial artery (distal): 132 cm/sec, with triphasic flow. Ulnar artery (proximal): 93 cm/sec, with triphasic flow. Ulnar artery (mid): 78 cm/sec. with triphasic flow. Ulnar artery (distal): 113 cm/sec, with triphasic flow. Thornton-scale imaging description: No visualized plaque. IMPRESSION: No hemodynamically significant stenosis. Reviewed by: Smitha Nunez MD on 07/04/2020 5:21 PM PST Approved by: Smitha Nunez MD on 07/04/2020 5:21 PM PST Station ID: [id number]
== END 2020-07-04 14:14 | disposition home or self-care (01) ==
LOC: DI 14:13
PROVIDERS: ATTEND Family Medicine
DX: I62.9 Nontraumatic intracranial hemorrhage, unspecified (principal); M79.602 Pain in left arm; R20.0 Anesthesia of skin
CPT/HCPCS: 70450

== ENCOUNTER 2020-08-31 09:02 | Outpatient (CLI) | payer MEDICARE, OTHER | END 2020-08-31 09:03 | disposition critical access hospital (66) | LOC: EMS 09:02 | PROVIDERS: ATTEND Emergency Medicine | DX: R53.1 Weakness (principal) | CPT/HCPCS: A0425; A0429 ==

== ENCOUNTER 2020-08-31 09:20 | Emergency (ER) | payer MEDICARE, OTHER ==
--- NOTE | 2020-08-31 09:33 | ED Physician Documentation ---
History of Present Illness - Stated complaint Stated Complaint: L side facial droop - Chief complaint Chief Complaint: Neuro - History obtained from History obtained from: Patient, Family (daughter), EMS - Additonal information Additional information: 85yF with pmh afib not on AC since her march ICH, also with repeat brain bleed in June, p/w mild frontal headache last night around 11pm that self resolved, f/by jitteriness on waking this am, sensation of weakness, and possible mild L facial droop noted by her daughter. They report she had an active day yesterday with her first PT/OT session but otherwise was feeling normal. on arrival to ED patient has no complaints, no neuro deficits. 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 HEENT: Tonsil/Adenoidectomy - Present Medications Home Medications: Ambulatory Orders Medication Instructions Recorded Confirmed Ascorbic Acid [Vitamin C] 1,000 mg PO DAILY 05/02/14 08/31/20 Cholecalciferol (Vitamin D3) 1,000 unit PO DAILY 05/02/14 08/31/20 [Vitamin D] Digoxin [Lanoxin] 0.125 mg PO DAILY 05/02/14 08/31/20 Lansoprazole 15 mg PO DAILY 05/02/14 08/31/20 Lisinopril 10 mg PO DAILY 05/02/14 08/31/20 Magnesium Oxide [Magox 400] 400 mg PO DAILY 05/02/14 08/31/20 Multivitamin [Multi-Day Vitamins] 1 each PO DAILY 05/02/14 08/31/20 [place]-3/Dha/Epa/Fish Oil [Fish Oil] 1,000 mg PO BID 05/02/14 08/31/20 Vitamin E 400 unit PO DAILY 05/02/14 08/31/20 Glucosam/Chond-Msm1/C/Monty/Bor 1 tab ORAL DAILY 06/28/15 08/31/20 [Pkquxbm-Ebxnu-HKH Complex Cplt] Insulin Glargine,Hum.rec.anlog 42 units SQ DAILY 06/28/15 08/31/20 [Lantus Solostar] Liraglutide [Victoza 2-Berhane] 1.8 units SQ DAILY 06/28/15 08/31/20 Metoprolol Tartrate 50 mg ORAL Q8HR 06/28/15 08/31/20 Pravastatin Sodium 80 mg PO DAILY 06/28/15 08/31/20 hydroCHLOROthiazide 0.5 tab ORAL DAILY 05/25/18 08/31/20 [Hydrochlorothiazide] amLODIPine [Norvasc] 10 mg PO DAILY 08/31/20 08/31/20 rOPINIRole [Requip] 0.25 mg PO QPM 08/31/20 08/31/20 - Allergies Allergies/Adverse Reactions: Allergies Allergy/AdvReac Type Severity Reaction Status Date / Time codeine AdvReac Nausea Verified 08/31/20 09:27 - Social History Does the pt smoke?: No Smoking Status: Never smoker Does the pt drink ETOH?: Yes Does the pt have substance abuse?: No - Immunizations Immunizations are current?: Yes - POLST Patient has POLST: No PD ED PE NORMAL - Vitals Vital signs reviewed: Yes - General General: Alert and oriented X 3, No acute distress, Well developed/nourished - HEENT HEENT: Atraumatic, PERRL, EOMI - Neck Neck: Supple, no meningeal sign - Cardiac Cardiac: RRR - Respiratory Respiratory: No respiratory distress - Abdomen Abdomen: Normal bowel sounds, Non tender, Non distended - Female Female : Deferred - Rectal Rectal: Deferred - Back Back: No spinal TTP - Derm Derm: Normal color - Extremities Extremities: No deformity - Neuro Neuro: Alert and oriented X 3, 21 dealer 2-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, No motor deficit, No sensory deficit, Other (ambulatory with assistance) - Psych Psych: Normal mood, Normal affect Results - Vitals Vitals: Vital Signs - 24 hr 08/31/20 08/31/20 08/31/20 09:22 09:37 11:43 Temperature 36.5 C Heart Rate 66 66 71 Respiratory 20 23 14 Rate Blood Pressure 157/83 H 157/83 H 173/70 H O2 Saturation 100 100 100 Oxygen O2 Source Room air - Labs Labs: Laboratory Tests 08/31/20 08/31/20 08/31/20 09:41 09:41 09:41 WBC 4.7 L RBC 4.69 Hgb 13.5 Hct 42.0 MCV 89.6 MCH 28.8 MCHC 32.1 RDW 14.6 Plt Count 182 MPV 9.0 Neut # (Auto) 3.2 Lymph # (Auto) 0.9 L [place] # (Auto) 0.5 Eos # (Auto) 0.1 Baso # (Auto) 0.0 Absolute Nucleated RBC 0.00 Nucleated RBC % 0.0 Sodium 139 Potassium 3.9 Chloride 99 L Carbon Dioxide 28 Anion Gap 12.0 BUN 28 H Creatinine 0.8 Estimated GFR (MDRD) 68 L Glucose 119 H Calcium 8.9 Total Bilirubin 0.8 AST 24 ALT 19 Alkaline Phosphatase 74 Troponin I High Sens 6.1 Total Protein 6.5 L Albumin 3.8 Globulin 2.7 Albumin/Globulin Ratio 1.4 Lipase 34 PD MEDICAL DECISION MAKING - ED course ED course: 9:30am - 85-year-old woman with history of multiple brain bleeds, most recent in March, presents with brief headache lasting 10 minutes and self resolving last night around 11 PM prior to going to bed. Upon waking she was jittery and unbalanced, and her daughter thought that she noted a left facial droop. On arrival to the emergency room patient states that she feels better, however is having difficulty ambulating and is a little bit more unsteady on her feet than yesterday. Neurologic exam otherwise within normal limits. NIHSS 0. No facial droop noted on examination. Will obtain head CT and lab work to evaluate for neurologic etiology. not a tpa or thrombectomy candidate given hx of bleeds, resolving symptoms, low nihss. Patient asymptomatic at present. labwork, cxr, ekg, ct head noncontributory. she is ambulatory without difficulty. she thinks she may have overextended herself at PT yesterday so we discussed taking it easy at next session. d/w daughter who will set her up with primary doc follow up appointment. strict return precautions discussed. Departure - Departure Disposition: 01 Home, Self Care Clinical Impression: Weakness, Feeling jittery, Facial droop Condition: Good Instructions: ED Weakness [facility] Comments: You were seen in the emergency department for weakness and possible facial droop after having a headache yesterday. Since your symptoms have resolved and your CT head, ekg, chest xray and labwork were okay, you can follow up with your primary doctor. Make sure to ease into your next physical therapy session and don't overextend yourself. Return to the ed if you have any new or worsening symptoms or other concerns.
[2020-08-31] MEDS ORDERED: LACTATED RINGERS 1,000 ML IV STA (09:37)
[2020-08-31] MEDS ORDERED: LACTATED RINGERS 500 ML IV STA (09:42)
[2020-08-31 09:44] LABS: BASOPHILS % (AUTO) 0.4 %; EOSINOPHILS # (AUTO) 0.1 10^3/uL (0.0-0.7); EOSINOPHILS % (AUTO) 2.1 %; HGB - HEMOGLOBIN 13.5 g/dL (12.0-16.0); LYMPHOCYTES # (AUTO) 0.9 10^3/uL (1.5-3.5); LYMPHOCYTES % (AUTO) 19.5 %; MEAN CORPUSCULAR HEMOGLOBIN 28.8 pg (27.0-31.0); MEAN CORPUSCULAR HGB CONC 32.1 g/dL (32.0-36.0); MEAN CORPUSCULAR VOLUME 89.6 fL (81.0-99.0); MONOCYTES # (AUTO) 0.5 10^3/uL (0.0-1.0); MONOCYTES % (AUTO) 10.8 %; NEUTROPHILS # (AUTO) 3.2 10^3/uL (1.5-6.6); PLT - PLATELET COUNT 182 10^3/uL (130-450); RED BLOOD COUNT 4.69 10^6/uL (4.20-5.40); RED CELL DISTRIBUTION WIDTH 14.6 % (12.0-15.0); WHITE BLOOD COUNT 4.7 x10^3/uL (4.8-10.8)
[2020-08-31] MEDS ORDERED: IOVERSOL 320 100 ML VIAL IVP ONE (09:47)
--- NOTE | 2020-08-31 10:09 | CT Report ---
PROCEDURE: HEAD WO INDICATIONS: Assessment for intracranial hemorrhage or stroke; neurologic and signs and symptoms of stroke; facial droop, unsteadiness TECHNIQUE: Noncontrast 4.5 mm thick angled axial sections acquired from the foramen magnum to the vertex. For r adiation dose reduction, the following was used: automated exposure control, adjustment of mA and/or kV according to patient size. COMPARISON: None. FINDINGS: Image quality: Excellent. CSF spaces: Basal cisterns are patent. No extra-axial fluid collections. Ventricles are normal in size and shape. Brain: No midline shift. No intracranial masses or hemorrhage. Thornton-white matter interface is main tained. Skull and face: Calvarium and visualized facial bones are intact, without suspicious lesions. Sinuses: Visualized sinuses and mastoids are clear. IMPRESSION: No acute intracranial abnormality Reviewed by: Fabricio Sorensen MD on 08/31/2020 9:07 AM [facility] Approved by: Fabricio Sorensen MD on 08/31/2020 9:07 AM [facility] Station ID: [id number]
[2020-08-31 10:19] LABS: ALBUMIN 3.8 g/dL (3.2-5.5); ALBUMIN/GLOBULIN RATIO 1.4 (1.0-2.2); BILIRUBIN,TOTAL 0.8 mg/dL (0.2-1.0); CALCIUM 8.9 mg/dL (8.5-10.3); CREATININE 0.8 mg/dL (0.4-1.0); TOTAL PROTEIN 6.5 g/dL (6.7-8.2)
--- NOTE | 2020-08-31 10:26 | XRAY Report ---
PROCEDURE: Chest 1 View X-Ray INDICATIONS: Chest Pain TECHNIQUE: One view of the chest was acquired. COMPARISON: 03/28/2020 FINDINGS: Surgical changes and devices: None. Lungs and pleura: No pleural effusions or pneumothorax. Lungs are clear. Mediastinum: Mediastinal contours appear normal. Heart size is enlarged. Bones and chest wall: No suspicious bony lesions. Overlying soft tissues appear unremarkable. IMPRESSION: No acute cardiopulmonary process. Reviewed by: Antonio Perez MD on 08/31/2020 10:24 AM [facility] Approved by: Antonio Perez MD on 08/31/2020 10:24 AM [facility] Station ID: [id number]
[2020-08-31 11:44] VITALS: BP 173/70
== END 2020-08-31 12:30 | disposition home or self-care (01) ==
LOC: EDUNIT# → ED 09:20
DX: R53.1 Weakness (principal); R29.810 Facial weakness; R26.81 Unsteadiness on feet; R51.9 Headache, unspecified; Z86.79 Personal history of other diseases of the circulatory system; I10 Essential (primary) hypertension; E11.9 Type 2 diabetes mellitus without complications; Z79.4 Long term (current) use of insulin
CPT/HCPCS: 36415; 70450; 71045; 80053; 83690; 84484; 85025; 93005; 99281; 99284; J7120

== ENCOUNTER 2021-07-28 07:17 | Outpatient (CLI) | payer MEDICARE, OTHER | END 2021-07-28 07:18 | disposition short-term general hospital (02) | LOC: EMS 07:17 | DX: Z04.3 Encounter for examination and observation following other accident (principal); R29.898 Other symptoms and signs involving the musculoskeletal system; M25.562 Pain in left knee; G89.29 Other chronic pain | CPT/HCPCS: A0425; A0429 ==

== ENCOUNTER 2021-08-03 01:08 | Outpatient (CLI) | payer MEDICARE, OTHER | END 2021-08-03 01:09 | disposition critical access hospital (66) | LOC: EMS 01:08 | DX: R41.0 Disorientation, unspecified (principal); E16.2 Hypoglycemia, unspecified | CPT/HCPCS: A0425; A0427 ==

== ENCOUNTER 2021-08-03 02:03 | Inpatient (IN) | payer MEDICARE, OTHER ==
--- NOTE | 2021-08-03 02:24 | ED Physician Documentation ---
History of Present Illness - Stated complaint Stated Complaint: AMS - Chief complaint Chief Complaint: Neuro - History obtained from History obtained from: Patient, Family (dAUGHTER), EMS - Additonal information Additional information: 86yF with PMH diabetes on insulin, multiple "brain bleeds", recent possible TIA after being seen at [facility] for fall from bed with confusion last week, p/w fall from bed and confusion. Patient was behaving normally during the day yesterday and was LSN 9pm. 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 Fingerstick on scene 68 improving to 130 s/p amp of d25 with concurrent improvement in mental status. Patient is now AOX3 but still can't remember how she ended up on the floor. no FND. does have abrasion to L upper face and R knee. not on blood thinners. no other complaints. Review of Systems Ten Systems: 10 systems reviewed and negative Constitutional: denies: Fever, Chills Eyes: denies: Loss of vision Ears: denies: Loss of hearing Cardiac: denies: Chest pain / pressure Respiratory: denies: Dyspnea GI: denies: Abdominal Pain, Nausea, Vomiting : denies: Dysuria, Frequency Skin: reports: Abrasion (s) Musculoskeletal: denies: Neck pain, Back pain PD PAST MEDICAL HISTORY - Past Medical History Cardiovascular: Hypertension, High cholesterol, Atrial fibrillation Respiratory: None Neuro: Other Endocrine/Autoimmune: Type 2 diabetes GI: Hiatal hernia : None HEENT: None Psych: None Musculoskeletal: None Derm: None - Past Surgical History Past Surgical History: Yes General: Cholecystectomy, Appendectomy 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 HEENT: Tonsil/Adenoidectomy - Present Medications Home Medications: Ambulatory Orders Medication Instructions Recorded Confirmed Ascorbic Acid [Vitamin C] 1,000 mg PO DAILY 05/02/14 08/31/20 Cholecalciferol (Vitamin D3) 1,000 unit PO DAILY 05/02/14 08/31/20 [Vitamin D] Digoxin [Lanoxin] 0.125 mg PO DAILY 05/02/14 08/31/20 Lisinopril 10 mg PO DAILY 05/02/14 08/31/20 Magnesium Oxide [Magox 400] 400 mg PO DAILY 05/02/14 08/31/20 Multivitamin [Multi-Day Vitamins] 1 each PO DAILY 05/02/14 08/31/20 [place]-3/Dha/Epa/Fish Oil [Fish Oil] 1,000 mg PO BID 05/02/14 08/31/20 Vitamin E 400 unit PO DAILY 05/02/14 08/31/20 Glucosam/Chond-Msm1/C/Monty/Bor 1 tab ORAL DAILY 06/28/15 08/31/20 [Wsmfzyw-Pfoew-RZN Complex Cplt] Insulin Glargine,Hum.rec.anlog 42 units SQ DAILY 06/28/15 08/31/20 [Lantus Solostar] Liraglutide [Victoza 2-Berhane] 1.8 units SQ DAILY 06/28/15 08/31/20 Pravastatin Sodium 80 mg PO DAILY 06/28/15 08/31/20 amLODIPine [Norvasc] 10 mg PO DAILY 08/31/20 08/31/20 Levetiracetam [Keppra] 500 mg PO DAILY 08/03/21 08/03/21 - Allergies Allergies/Adverse Reactions: Allergies Allergy/AdvReac Type Severity Reaction Status Date / Time codeine AdvReac Nausea Verified 08/03/21 04:20 - Social History Does the pt smoke?: No Smoking Status: Never smoker Does the pt drink ETOH?: Yes Does the pt have substance abuse?: No - Immunizations Immunizations are current?: Yes - POLST Patient has POLST: No PD ED PE NORMAL - Vitals Vital signs reviewed: Yes - General General: Alert and oriented X 3, No acute distress, Well developed/nourished, Other (elderly appearing) - HEENT HEENT: Atraumatic, PERRL, EOMI - Neck Neck: Supple, no meningeal sign, No bony TTP - Cardiac Cardiac: RRR - Respiratory Respiratory: No respiratory distress, Clear bilaterally - Abdomen Abdomen: Non tender, Non distended - Back Back: No CVA TTP - Derm Derm: Normal color - Extremities Extremities: No deformity, Other (BL LE weakness daughter states is at baseline. no assymmetry) - Neuro Neuro: Alert and oriented X 3, armature repairer 2-12 intact, No motor deficit, No sensory deficit, Normal speech - Psych Psych: Normal mood, Normal affect Results - Vitals Vitals: Vital Signs - 24 hr 08/03/21 08/03/2122 02:14 02:19 02:35 Temperature 35.3 C L 32.7 C L Heart Rate 97 Respiratory 18 Rate Blood Pressure 106/67 O2 Saturation 97 08/03/21 08/03/21 08/03/21 04:10 04:30 05:00 Temperature 33.2 C L Heart Rate 52 L 53 L 56 L Respiratory 15 16 17 Rate Blood Pressure 139/101 H 127/52 L 133/59 H O2 Saturation 92 95 96 08/03/21 08/03/21 08/03/21 05:26 05:36 05:44 Temperature 34.7 C L 34.9 C L 35.0 C L Heart Rate 54 L Respiratory 16 Rate Blood Pressure 126/55 L O2 Saturation 95 Oxygen O2 Source Room air - EKG (time done) 0502 Rate: Rate (enter#) (55) Rhythm: NSR Intervals: Normal KS QRS: Normal Computer interpretation: Agree with computer - Labs Labs: Laboratory Tests 08/03/21 08/03/21 08/03/21 03:00 03:00 03:00 WBC 5.0 RBC 5.16 Hgb 15.1 Hct 46.1 MCV 89.3 MCH 29.3 MCHC 32.8 RDW 12.4 Plt Count 136 MPV 10.3 Neut # (Auto) 3.9 Lymph # (Auto) 0.8 L Scre[place] # (Auto) 0.3 Eos # (Auto) 0.1 Baso # (Auto) 0.0 Absolute Nucleated RBC 0.00 Nucleated RBC % 0.0 Sodium 138 Potassium 3.8 Chloride 102 Carbon Dioxide 25 Anion Gap 11.0 BUN 26 H Creatinine 0.6 Estimated GFR (MDRD) 94 Glucose 105 H Calcium 8.9 Total Bilirubin 0.5 AST 24 ALT 20 Alkaline Phosphatase 66 Total Creatine Kinase 147 Total Protein 6.9 Albumin 4.0 Globulin 2.9 Albumin/Globulin Ratio 1.4 Lipase 42 TSH 1.68 Free T4 0.87 Thyroxine (T4) 8.47 Urine Color Urine Clarity Urine pH Ur Specific [place] Urine Protein Urine Glucose (UA) Urine Ketones Urine Occult Blood Urine Nitrite Urine Bilirubin Urine Urobilinogen Ur Leukocyte Esterase Urine RBC Urine WBC Ur Squamous Epith Cells Urine Bacteria Urine Culture Comments Nasal Adenovirus (PCR) Nasal B. parapertussis DNA (PCR) Nasal Coronavir 229E PCR Nasal Coronavir HKU1 PCR Nasal Coronavir NL63 PCR Nasal Coronavir OC43 PCR Nasal Enterovir/Rhinovir PCR Nasal Influenza B PCR Nasal Influenza A PCR Nasal Parainfluen 1 PCR Nasal Parainfluen 2 PCR Nasal Parainfluen 3 PCR Nasal Parainfluen 4 PCR Nasal RSV (PCR) Nasal B.pertussis DNA PCR Nasal C.pneumoniae (PCR) Christopher Human Metapneumo PCR Nasal M.pneumoniae (PCR) Nasal SARS-CoV-2 (PCR) Last Dose Date Last Dose Time Digoxin 08/03/21 08/03/21 08/03/21 03:00 04:00 04:53 WBC RBC Hgb Hct MCV MCH MCHC RDW Plt Count MPV Neut # (Auto) Lymph # (Auto) [place] # (Auto) Eos # (Auto) Baso # (Auto) Absolute Nucleated RBC Nucleated RBC % Sodium Potassium Chloride Carbon Dioxide Anion Gap BUN Creatinine Estimated GFR (MDRD) Glucose Calcium Total Bilirubin AST ALT Alkaline Phosphatase Total Creatine Kinase Total Protein Albumin Globulin Albumin/Globulin Ratio Lipase TSH Free T4 Thyroxine (T4) Urine Color YELLOW Urine Clarity CLEAR Urine pH 5.5 Ur Specific [place] 1.025 Urine Protein NEGATIVE Urine Glucose (UA) NEGATIVE Urine Ketones NEGATIVE Urine Occult Blood NEGATIVE Urine Nitrite NEGATIVE Urine Bilirubin NEGATIVE Urine Urobilinogen 0.2 (NORMAL) Ur Leukocyte Esterase NEGATIVE Urine RBC None Seen Urine WBC 0-3 Ur Squamous Epith Cells NONE SEEN Urine Bacteria None Seen Urine Culture Comments NOT INDICATED Nasal Adenovirus (PCR) NOT DETECTED Nasal B. parapertussis DNA (PCR) NOT DETECTED Nasal Coronavir 229E PCR NOT DETECTED Nasal Coronavir HKU1 PCR NOT DETECTED Nasal Coronavir NL63 PCR NOT DETECTED Nasal Coronavir OC43 PCR NOT DETECTED Nasal Enterovir/Rhinovir PCR NOT DETECTED Nasal Influenza B PCR NOT DETECTED Nasal Influenza A PCR NOT DETECTED Nasal Parainfluen 1 PCR NOT DETECTED Nasal Parainfluen 2 PCR NOT DETECTED Nasal Parainfluen 3 PCR NOT DETECTED Nasal Parainfluen 4 PCR NOT DETECTED Nasal RSV (PCR) NOT DETECTED Nasal B.pertussis DNA PCR NOT DETECTED Nasal C.pneumoniae (PCR) NOT DETECTED Christopher Human Metapneumo PCR NOT DETECTED Nasal M.pneumoniae (PCR) NOT DETECTED Nasal SARS-CoV-2 (PCR) NOT DETECTED Last Dose Date UNK Last Dose Time UNK Digoxin 0.4 PD MEDICAL DECISION MAKING - ED course ED course: 86yF presents s/p fall from bed with confusion, resolving after hypoglycemia was corrected. Patient with rectal temp 90.8 in the ED. She is c/o feeling cold. Bear hugger applied. no symptoms concerning for infection. vitals otherwise WNL. no history thyroid disease. will send labs, reevaluate. CT head noncontributory. knee xray without acute fracture. labs unremarkable. Patient is still hypothermic despite bearhugger. Thyroid tests are normal. environmental exposure unlikely given she has been in continuous warm setting. Labs show no indication of malnourishment. Glucose has been corrected and is now normal here. Daughter states patient has been asymptomatic, no source for apparent infection. We will check a urine and chest xray for infectious source in addition to lactic acid, blood cultures. Will also trial decadron in case of idiopathic adrenal insufficiency as cause. Warmed IVF are going in now. Note that daughter Liliana stated prior to leaving that ongoing conversations are happening about her mother's wishes but that she does not have any advanced directive or POLST in place at this time. patient is full code, full interventions. CXR and u/a are clear. infection seeming unlikely. dig level normal. still with core sherman temp 35 deg celsius. No clear explanation for her hypothermia aside from potential of environmental exposure given she is elderly and unable to thermoregulate as well and had been on the floor for unspecified time prior to EMS arrival. d/w Dr. Duffy for observation admission. Departure - Departure Disposition: ED Place in Observation Clinical Impression: Hypoglycemia, Altered mental status, Abrasion, Fall from bed, Hypothermia Condition: Stable Instructions: Hypoglycemia
[2021-08-03] MEDS ORDERED: BACITRACIN ZINC OINT 1 PACKET TOP STA (02:29)
[2021-08-03 03:12] LABS: BASOPHILS % (AUTO) 0.2 %; EOSINOPHILS # (AUTO) 0.1 10^3/uL (0.0-0.7); HCT - HEMATOCRIT 46.1 % (37.0-47.0); HGB - HEMOGLOBIN 15.1 g/dL (12.0-16.0); LYMPHOCYTES # (AUTO) 0.8 10^3/uL (1.5-3.5); LYMPHOCYTES % (AUTO) 14.9 %; MEAN CORPUSCULAR HEMOGLOBIN 29.3 pg (27.0-31.0); MEAN CORPUSCULAR HGB CONC 32.8 g/dL (32.0-36.0); MEAN CORPUSCULAR VOLUME 89.3 fL (81.0-99.0); MEAN PLATELET VOLUME 10.3 fL (7.9-10.8); MONOCYTES # (AUTO) 0.3 10^3/uL (0.0-1.0); MONOCYTES % (AUTO) 6.2 %; NEUTROPHILS # (AUTO) 3.9 10^3/uL (1.5-6.6); NEUTROPHILS % (AUTO) 77.5 %; PLT - PLATELET COUNT 136 10^3/uL (130-450); RED BLOOD COUNT 5.16 10^6/uL (4.20-5.40); RED CELL DISTRIBUTION WIDTH 12.4 % (12.0-15.0)
[2021-08-03 03:19] LABS: ALBUMIN/GLOBULIN RATIO 1.4 (1.0-2.2); BILIRUBIN,TOTAL 0.5 mg/dL (0.2-1.0); CALCIUM 8.9 mg/dL (8.5-10.3); CREATININE 0.6 mg/dL (0.4-1.0); POTASSIUM 3.8 mmol/L (3.5-5.0); TOTAL PROTEIN 6.9 g/dL (6.7-8.2)
[2021-08-03 03:33] LABS: T4 (THYROXINE) 8.47 ug/dL (6.09-12.23)
[2021-08-03 03:37] LABS: THYROID STIMULATING HORMONE 1.68 uIU/mL (0.34-5.60)
[2021-08-03 03:39] LABS: FREE T4 (FREE THYROXINE) 0.87 ng/dL (0.58-1.64)
[2021-08-03] MEDS ORDERED: DEXAMETHASONE 10 MG/ML VIAL IVP STA ×2 (04:07→04:14)
[2021-08-03] MEDS ORDERED: SODIUM CHLORIDE 0.9% 500 ML IV STA (04:22)
[2021-08-03 05:01] LABS: DIGOXIN 0.4 ng/mL
[2021-08-03 05:06] LABS: BILIRUBIN,URINE NEGATIVE (NEGATIVE); GLUCOSE, URINE (UA) NEGATIVE (NEGATIVE); KETONES,URINE (UA) NEGATIVE (NEGATIVE); LEUKOCYTE ESTERASE, URINE NEGATIVE (NEGATIVE); NITRITE,URINE NEGATIVE (NEGATIVE); OCCULT BLOOD,URINE NEGATIVE (NEGATIVE); PH,URINE 5.5 PH (5.0-7.5); PROTEIN,URINE NEGATIVE (NEGATIVE); UROBILINOGEN,URINE 0.2 (NORMAL) E.U./dL (NORMAL)
[2021-08-03 05:14] LABS: BACTERIA,URINE None Seen /HPF (None Seen); CLARITY,URINE CLEAR (CLEAR); RBC,URINE None Seen /HPF (0-5); SQUAMOUS EPITHELIAL CELL,UR NONE SEEN (<= Few); WBC,URINE 0-3 /HPF (0-5)
[2021-08-03 05:24] LABS: CORONAVIRUS 229E-RESP PCR NOT DETECTED; CORONAVIRUS HKU1-RESP PCR NOT DETECTED; CORONAVIRUS NL63-RESP PCR NOT DETECTED; CORONAVIRUS OC43-RESP PCR NOT DETECTED; SARS-CoV-2 -RESP PCR PANEL NOT DETECTED
[2021-08-03 05:25] LABS: B. PARAPERTUSSIS- RESP PCR PAN NOT DETECTED; B. PERTUSSIS- RESP PCR PANEL NOT DETECTED; C. PNEUMONIAE- RESP PCR PANEL NOT DETECTED; HUMAN METAPNEUMOVIRUS NOT DETECTED; INFLUENZA A- RESP PCR PANEL NOT DETECTED; INFLUENZA B - RESP PCR PANEL NOT DETECTED; M. PNEUMONIAE- RESP PCR PANEL NOT DETECTED; PARAINFLUENZA VIRUS 1 NOT DETECTED; PARAINFLUENZA VIRUS 2 NOT DETECTED; PARAINFLUENZA VIRUS 3 NOT DETECTED; PARAINFLUENZA VIRUS 4 NOT DETECTED; RHINOVIRUS/ENTEROVIRUS NOT DETECTED; RSV- RESP PCR PANEL NOT DETECTED
[2021-08-03] MEDS ORDERED: SODIUM CHLORIDE 0.9% 1,000 ML IV STA (05:48)
[2021-08-03] MEDS ORDERED: SODIUM CHLORIDE 0.9% 250 ML IV STA (06:13)
[2021-08-03] MEDS ORDERED: SODIUM CHLORIDE FLUSH 0.9% 10 ML SYRINGE IVP PRN (07:19)
[2021-08-03] MEDS ORDERED: ONDANSETRON 4 MG/2 ML VIAL IVP PRN (07:19)
[2021-08-03] MEDS ORDERED: ACETAMINOPHEN 325 MG TABLET PO PRN (07:19)
[2021-08-03] MEDS ORDERED: LEVETIRACETAM 500 MG PO SCH (09:00)
[2021-08-03] MEDS ORDERED: levETIRAcetam 100 MG/ML 473ML BOTTLE PO SCH (09:00)
--- NOTE | 2021-08-03 09:22 | CT Report ---
PROCEDURE: HEAD WO INDICATIONS: fall from bed, unknown loc TECHNIQUE: Noncontrast 4.5 mm thick angled axial sections acquired from the foramen magnum to the vertex. For r adiation dose reduction, the following was used: automated exposure control, adjustment of mA and/or kV according to patient size. COMPARISON: 08/31/2020, 07/04/2020 FINDINGS: Image quality: Beam hardening artifact can be seen within the periphery of the brain. CSF spaces: Basal cisterns are patent. No extra-axial fluid collections. Ventricles are normal in size and shape. Brain: No midline shift. No intracranial masses or hemorrhage. Thornton-white matter interface is norm al. Age-appropriate brain parenchymal volume loss and chronic small vessel ischemic change can be se en. Skull and face: Calvarium and visualized facial bones are intact, without suspicious lesions. Sinuses: There is moderate mucosal thickening seen within the left maxillary sinus and the left sphen oid sinus, with milder mucosal thickening seen elsewhere. No significant abnormal fluid can be seen w ithin the mastoid air cells. IMPRESSION: No intracranial hemorrhage is seen. No significant intracranial abnormality is seen. Focal moderate left sided sinus disease noted. Note: No significant discrepancy from the preliminary report. Reviewed by: Jamar Sapp MD on 08/03/2021 8:20 AM [facility] Approved by: Jamar Sapp MD on 08/03/2021 8:20 AM [facility] Station ID: [id number]
--- NOTE | 2021-08-03 09:23 | XRAY Report ---
PROCEDURE: Chest 1 View X-Ray INDICATIONS: hypothermic, clinical concern for sepsis TECHNIQUE: One view of the chest was acquired. COMPARISON: 08/31/2020, 04/07/2020, 03/03/2020 FINDINGS: Surgical changes and devices: None. Lungs and pleura: No pleural effusions or pneumothorax. Low lung volumes can be seen, causing a aerial crop duster wded appearance to the lung markings. Mild streaky opacities can be seen at the lung bases. Mediastinum: Mediastinal contours appear normal. Heart size is normal. Bones and chest wall: No suspicious bony lesions. Age-appropriate degenerative changes are seen. S- shaped scoliotic curvature is incidentally noted. Overlying soft tissues appear unremarkable. IMPRESSION: No billy infiltrates are seen. Low lung volumes, with likely atelectasis at the lung bases. Please consider a short-term follow-up 2 view chest series (performed in deep inspiration) for furthe r evaluation. Note: No significant discrepancy from the preliminary report. Reviewed by: Jamar Sapp MD on 08/03/2021 8:22 AM [facility] Approved by: Jamar Sapp MD on 08/03/2021 8:22 AM [facility] Station ID: [id number]
[2021-08-03] MEDS: INSULIN ASPART 300 UNIT/3 ML PEN SUBQ SCH ×4 (09:25→20:20)
[2021-08-03] MEDS: ENOXAPARIN 40 MG/0.4 ML SYRINGE SUBQ SCH (09:25)
[2021-08-03] MEDS: DIGOXIN 125 MCG TABLET PO SCH (09:25)
[2021-08-03] MEDS: carvediloL 12.5 MG TABLET PO SCH ×2 (09:25→17:16)
--- NOTE | 2021-08-03 09:25 | XRAY Report ---
PROCEDURE: Knee 2 View RT INDICATIONS: knee pain, abrasion s/p fall from bed TECHNIQUE: 2 views of the right knee(s) were acquired. COMPARISON: 09/26/2014 FINDINGS: Bones: No fractures or dislocations. No suspicious bony lesions. There is moderate medial femorotibial joint space narrowing, with associated degenerative change with subchondral sclerosis and osteophyte formation. Soft tissues: There is a mild joint effusion. No suspicious soft tissue calcifications. IMPRESSION: No acute fracture can be seen. Mild joint effusion. Moderate medial femorotibial joint space narrowing with associated remodeling change. If it would be helpful for clinical management decision making, please consider a dedicated, schedule d knee MRI for further evaluation (assuming that there is no contraindication). Note: No significant discrepancy from the preliminary report. Reviewed by: Jamar Sapp MD on 08/03/2021 8:23 AM [facility] Approved by: Jamar Sapp MD on 08/03/2021 8:23 AM [facility] Station ID: [id number]
[2021-08-03] MEDS: levETIRAcetam 250 MG TABLET PO SCH ×2 (09:26→20:23)
[2021-08-03] MEDS: lisinopriL 20 MG TABLET PO SCH ×2 (09:26→20:23)
[2021-08-03] MEDS: MAGNESIUM OXIDE 400 MG TABLET PO SCH (09:26)
[2021-08-03] MEDS: SODIUM CHLORIDE FLUSH 0.9% 10 ML SYRINGE IVP SCH ×2 (09:26→17:16)
--- NOTE | 2021-08-03 10:21 | HISTORY & PHYSICAL EXAMINATION ---
Chief Complaint - Chief Complaint Chief Complaint: hypothermia, confused, hypoglycemia History of Present Illness - Admitted From Admitted From:: medical floor - History Obtained From Records Reviewed: [facility] and medical record History obtained from: Pt Exam Limitations: no - History of Present Illness HPI Comment/Other: This is a 86-years old female with past medical history significant for hypertension, hyperlipidemia, atrial fibrillation, diabetic, history of brain hemorrhage and TIA and seizure Who brought by EMS to the ER for confusion and evaluation for the fall. Now patient is alert and oriented plus 4, her confusion is resolved. Patient report she lives alone but her daughter just live 3 blockage away from her and often come to her condom to check for her. Patient reported she did not remember why and how she had a fall in the home. EMS did Fingerstick on scene, glucose was 68. pt was given amp of D25, her glucose was increased to 130 then pt's mental status improved and became A&OX4 en route per Triage. pt was also found to have hypothermia in ER even pt was given bear huggar. CT of head, CXR, and Xray of knee reveals no acute process or fracture. Given above medical conditions, medical team was consulted for admission in observation unit. Discussed the care goal with the patient, patient hope to have full code. 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 Social History Notes: Patient denies any history of cigarette smoking, alcohol or drug history - POLST Patient has POLST: No Meds/Allgy - Home Medications Home Medications: Ambulatory Orders Medication Instructions Recorded Confirmed Ascorbic Acid [Vitamin C] 1,000 mg PO DAILY 05/02/14 08/03/21 Cholecalciferol (Vitamin D3) 1,000 unit PO DAILY 05/02/14 08/03/21 [Vitamin D] Digoxin [Lanoxin] 125 mcg PO DAILY 05/02/14 08/03/21 Magnesium Oxide [Magox 400] 400 mg PO DAILY 05/02/14 08/03/21 Multivitamin [Multi-Day Vitamins] 1 each PO DAILY 05/02/14 08/03/21 Lane-3/Dha/Epa/Fish Oil [Fish Oil] 1,000 mg PO BID 05/02/14 08/03/21 Vitamin E 400 unit PO DAILY 05/02/14 08/03/21 Glucosam/Chond-Msm1/C/Monty/Bor 1 tab ORAL DAILY 06/28/15 08/03/21 [Qnmrlne-Oxung-XVP Complex Cplt] Insulin Glargine,Hum.rec.anlog 20 units SQ QPM 06/28/15 08/03/21 [Lantus Solostar] Liraglutide [Victoza 2-Berhane] 1.8 mg SUBQ DAILY 06/28/15 08/03/21 Pravastatin Sodium 80 mg PO QPM 06/28/15 08/03/21 Amlodipine Besylate [Norvasc] 10 mg PO DAILY 08/03/21 08/03/21 Carvedilol [Coreg] 25 mg PO BIDWM 08/03/21 08/03/21 Insulin Aspart [NovoLOG] 10 unit SUBQ QDDINNER 08/03/21 08/03/21 Insulin Aspart [NovoLOG] 15 unit SUBQ QDBREAKFAST 08/03/21 08/03/21 Insulin Aspart [NovoLOG] 16 unit SUBQ QDLUNCH 08/03/21 08/03/21 Levetiracetam [Keppra] 500 mg PO BID 08/03/21 08/03/21 lisinopriL [Lisinopril] 20 mg PO BID 08/03/21 08/03/21 - Allergies Allergies/Adverse Reactions: Allergies Allergy/AdvReac Type Severity Reaction Status Date / Time codeine AdvReac Nausea Verified 08/03/21 04:20 Review of Systems - Constitutional Constitutional: denies: Fever, Chills - Eyes Eyes: denies: Pain - Ears, Nose & Throat Ears, Nose & Throat: denies: Ear pain - Cardiovascular Cariovascular: denies: Palpitations, Chest pain, Exertional dyspnea, Decr. exercise tolerance - Respiratory Respiratory: denies: Cough, SOB at rest, SOB with exertion - Gastrointestinal Gastrointestinal: denies: Abdominal pain, Diarrhea, Nausea, Vomiting - Genitourinary Genitourinary: denies: Dysuria - Musculoskeletal Musculoskeletal: denies: Muscle pain - Neurological Neurological: denies: Focal weakness, Headache, Dizziness, Numbness, Abnormal gait, Seizures, Incoordination, Slurred speech - Psychiatric Psychiatric: denies: Depression Exam - Vital Signs Vital Signs: Vital Signs x48h Temp Pulse Pulse Resp BP BP Pulse Ox 08/03/21 09:01 36.8 C 79 20 172/65 H 97 08/03/21 07:44 36.8 C 81 20 142/57 H 96 08/03/21 05:44 35.0 C L 08/03/21 05:36 34.9 C L 54 L 16 126/55 L 95 08/03/21 05:26 34.7 C L 08/03/21 05:00 56 L 17 133/59 H 96 08/03/21 04:30 53 L 16 127/52 L 95 08/03/21 04:10 33.2 C L 52 L 15 139/101 H 92 08/03/21 02:35 32.7 C L 08/03/21 02:19 35.3 C L 08/03/21 02:14 97 18 106/67 97 - Physical Exam General Appearance: positive: No acute distress, Alert. negative: Lethargic Eyes Bilateral: positive: Normal inspection, No lid inflammation ENT: positive: ENT inspection nml, No signs of dehydration. negative: Purulent nasal drainage Neck: positive: Nml inspection, Trachea midline. negative: Tracheal deviation Respiratory: positive: Chest non-tender, No respiratory distress, Breath sounds nml. negative: Wheezes, Rales Cardiovascular: positive: Regular rate & rhythm, Systolic murmur, Diastolic murmur. negative: Tachycardia, Bradycardia Peripheral Pulses: positive: 2+ Abdomen: positive: Non-tender, Nml bowel sounds, No distention. negative: Tenderness Back: positive: Nml inspection Skin: positive: Color nml, Warm, Dry. negative: Cyanosis Extremities: positive: Non-tender, Full ROM, Nml appearance Neurologic/Psychiatric: positive: Oriented x3, Motor nml, Sensation nml. negative: Weakness, Sensory loss, Facial droop, Slurred/abnml speech, Depressed mood/affect Conclusion/Plan - Problem List (1) Confused Conclusion/Plan: pt presented confused when EMS picked up pt per report, at the time pt's glucose was 68. after pt was given D25, her glucose became 130, her confusion was resolved. now pt is alert and oriented plus 4. CT of head was unremarkable for acute process. It is likely hypoglycemia to cause her confusion. pt has hx of diabetes, she took significant amount of insulin at home. we will educate pt for how to prevention of hypoglycemia and reduce her home insulin dosage. strongly advise pt followup with her PCP continue management of her diabetes and prevention of hypoglycemia. (2) Hypoglycemia Conclusion/Plan: pt was found to have hypoglycemia when EMS picked up pt, and pt became confused. but after her hypoglycemia was resolved, she became oriented plus 4. pt has hx of diabetes, she took significant amount of insulin at home. we will educate pt for how to prevention of hypoglycemia and reduce her home insulin dosage. strongly advise pt followup with her PCP continue management of her diabetes and prevention of hypoglycemia. (3) Hypothermia Conclusion/Plan: Now patient's hypothermia is resolved. Patient'd TSH and a free T4 all are at normal range. Patient reports she had a normal temperature set at home. It is presumed because of patient's hypoglycemia To cause her hypothermia. (4) Diabetes mellitus Conclusion/Plan: Patient has a history of diabetes, we will check A1c, we will start sliding scale, we will check glucose and that we will strongly and extensive educate to patient for prevention of hypoglycemia. (5) Atrial fibrillation Conclusion/Plan: HR is stable. Patient has a history of atrial fibrillation, patient also has a history of hemorrhage stroke, Patient has no blood thinner at her home medication list. We will resume patient Coreg, digoxin, continue cardiac monitor. (6) Hx of seizure disorder Conclusion/Plan: Stable, patient has no seizure, will resume home Keppra (7) HTN (hypertension) Conclusion/Plan: We will resume patient home blood pressure medicine, continue vital signs monitor - Lab Results Fish Bones: 08/03/21 03:00 08/03/21 03:00 Core Measures - Anticipated LOS I expect patient to be DC'd or transferred within 96 hours.: Yes - DVT/VTE - Prophylaxis VTE/DVT Device ordered at admit?: Yes VTE/DVT Prophylaxis med ordered at admit?: Yes
[2021-08-03] MEDS ORDERED: INSULIN ASPART 300 UNIT/3 ML PEN SUBQ SCH ×2 (17:11→21:00)
[2021-08-03] MEDS ORDERED: INSULIN REGULAR HUMAN 300 UNIT/3 ML VIAL SUBQ ONE (20:14)
[2021-08-03] MEDS: PRAVASTATIN 40 MG TABLET PO SCH (20:23)
[2021-08-03] MEDS: INSULIN GLARGINE 300 UNIT/3 ML PEN SUBQ SCH (20:23)
[2021-08-03 20:52] LABS: ESTIMATED AVERAGE GLUCOSE 163 mg/dL (70-100); HEMOGLOBIN A1c% 7.3 % (4.27-6.07)
[2021-08-04] MEDS: SODIUM CHLORIDE FLUSH 0.9% 10 ML SYRINGE IVP SCH ×3 (02:53→17:06)
[2021-08-04 06:50] LABS: BASOPHILS % (AUTO) 0.2 %; HCT - HEMATOCRIT 34.9 % (37.0-47.0); HGB - HEMOGLOBIN 11.5 g/dL (12.0-16.0); LYMPHOCYTES # (AUTO) 0.8 10^3/uL (1.5-3.5); LYMPHOCYTES % (AUTO) 17.5 %; MEAN CORPUSCULAR HEMOGLOBIN 29.1 pg (27.0-31.0); MEAN CORPUSCULAR VOLUME 88.4 fL (81.0-99.0); MEAN PLATELET VOLUME 10.4 fL (7.9-10.8); MONOCYTES # (AUTO) 0.6 10^3/uL (0.0-1.0); MONOCYTES % (AUTO) 12.1 %; NEUTROPHILS # (AUTO) 3.4 10^3/uL (1.5-6.6); NEUTROPHILS % (AUTO) 69.8 %; PLT - PLATELET COUNT 145 10^3/uL (130-450); RED BLOOD COUNT 3.95 10^6/uL (4.20-5.40); RED CELL DISTRIBUTION WIDTH 12.7 % (12.0-15.0); WHITE BLOOD COUNT 4.8 x10^3/uL (4.8-10.8)
[2021-08-04 07:02] LABS: CALCIUM 8.3 mg/dL (8.5-10.3); CREATININE 0.8 mg/dL (0.4-1.0)
[2021-08-04 08:14] LABS: ABSOLUTE RETICS # AUTO 0.075 10^6/uL (0.020-0.110); RED BLOOD COUNT 3.96 10^6/uL (4.20-5.40); RETICULOCYTE COUNT % (AUTO) 1.9 % (0.5-2.3)
[2021-08-04] MEDS: INSULIN ASPART 300 UNIT/3 ML PEN SUBQ SCH ×7 (08:30→21:30)
[2021-08-04] MEDS: ENOXAPARIN 40 MG/0.4 ML SYRINGE SUBQ SCH (08:31)
[2021-08-04] MEDS: DIGOXIN 125 MCG TABLET PO SCH (08:31)
[2021-08-04] MEDS: amLODIPine 5 MG TABLET PO SCH (08:31)
[2021-08-04] MEDS: MULTIVITAMIN TABLET PO SCH (08:31)
[2021-08-04] MEDS: levETIRAcetam 250 MG TABLET PO SCH ×2 (08:31→21:30)
[2021-08-04] MEDS: lisinopriL 20 MG TABLET PO SCH ×2 (08:31→21:30)
[2021-08-04] MEDS: carvediloL 12.5 MG TABLET PO SCH ×2 (08:31→17:04)
[2021-08-04] MEDS: MAGNESIUM OXIDE 400 MG TABLET PO SCH (08:31)
[2021-08-04 09:30] LABS: % IRON SATURATION 19 % (20-50); IRON 59 ug/dL (28-170); TOTAL IRON BINDING CAPACITY 316 ug/dL (250-450); TRANSFERRIN 226 mg/dL (192-382)
[2021-08-04 09:59] LABS: FECAL OCCULT BLOOD (FIT) POSITIVE (NEGATIVE)
[2021-08-04 10:22] LABS: FERRITIN 28.1 ng/mL (11.0-306.8)
[2021-08-04] MEDS: PANTOPRAZOLE 40 MG VIAL IVP SCH ×2 (11:43→21:30)
--- NOTE | 2021-08-04 12:19 | PROVIDER PROGRESS NOTE ---
Assessment/Plan - Problem List (1) GI bleed Assessment/Plan: 08/04 pt's HGB is drop to 11.5 from 15. pt denies abdominal pain, report normal bowel movement color but occult stool test is positive for GI bleed. anemia study is unremarkable. plan: H&H monitor, start with Protonix IV bid, consult with GI surgeon and plan to have EGD on tomorrow morning, then NPO after midnight. (2) Confused Conclusion/Plan: 08/04 resolved, pt is alert and oriented plus 4 pt presented confused when EMS picked up pt per report, at the time pt's glucose was 68. after pt was given D25, her glucose became 130, her confusion was resolved. now pt is alert and oriented plus 4. CT of head was unremarkable for acute process. It is likely hypoglycemia to cause her confusion. pt has hx of diabetes, she took significant amount of insulin at home. we will educate pt for how to prevention of hypoglycemia and reduce her home insulin dosage. strongly advise pt followup with her PCP continue management of her diabetes and prevention of hypoglycemia. (2) Hypoglycemia Conclusion/Plan: 08/04 resolved. start with slide scale, home Lantus, and Novolog tid scheduled, hypoglycemia protocol, blood glucose check pt was found to have hypoglycemia when EMS picked up pt, and pt became confused. but after her hypoglycemia was resolved, she became oriented plus 4. pt has hx of diabetes, she took significant amount of insulin at home. we will educate pt for how to prevention of hypoglycemia and reduce her home insulin dosage. strongly advise pt followup with her PCP continue management of her diabetes and prevention of hypoglycemia. (3) Hypothermia Conclusion/Plan: 08/04 resolved Now patient's hypothermia is resolved. Patient'd TSH and a free T4 all are at normal range. Patient reports she had a normal temperature set at home. It is presumed because of patient's hypoglycemia To cause her hypothermia. (4) Diabetes mellitus Conclusion/Plan: Patient has a history of diabetes, we will check A1c, we will start sliding scale, we will check glucose and that we will strongly and extensive educate to patient for prevention of hypoglycemia. (5) Atrial fibrillation Conclusion/Plan: HR is stable. Patient has a history of atrial fibrillation, patient also has a history of hemorrhage stroke, Patient has no blood thinner at her home medication list. We will resume patient Coreg, digoxin, continue surveillance system monitor. (6) Hx of seizure disorder Conclusion/Plan: Stable, patient has no seizure, will resume home Keppra (7) HTN (hypertension) Conclusion/Plan: We will resume patient home blood pressure medicine, continue vital signs monitor - Current Meds Current Meds: Current Medications Generic Name Dose Route Start Last Admin Trade Name Kalli PRN Reason Stop Dose Admin Amlodipine Besylate 10 mg 08/04/21 09:00 08/04/21 08:31 Amlodipine 5 Mg Tablet PO 10 mg DAILY EVELYN Administration Carvedilol 25 mg 08/03/21 10:00 08/04/21 08:31 Carvedilol 12.5 Mg Tablet PO 25 mg BIDWM EVELYN Administration Digoxin 125 mcg 08/03/21 09:00 08/04/21 08:31 Digoxin 125 Mcg Tablet PO 125 mcg DAILY EVELYN Administration Insulin Aspart 3 - 11 unit 08/03/21 17:18 08/04/21 11:55 Insulin Aspart 300 Unit/3 Ml Pen SUBQ 3 unit 0800,1200,1700,2100 EVELYN Administration Protocol Insulin Aspart 5 unit 08/04/21 08:00 08/04/21 11:55 Insulin Aspart 300 Unit/3 Ml Pen SUBQ 5 unit TIDWM EVELYN Administration Protocol Insulin Glargine 20 unit 08/03/21 21:00 08/03/21 20:23 Insulin Glargine 300 Unit/3 Ml Pen SUBQ 20 unit QPM EVELYN Administration Levetiracetam 500 mg 08/03/21 10:00 08/04/21 08:31 Levetiracetam 250 Mg Tablet PO 500 mg BID EVELYN Administration Lisinopril 20 mg 08/03/21 09:00 08/04/21 08:31 Lisinopril 20 Mg Tablet PO 20 mg BID EVELYN Administration Magnesium Oxide 400 mg 08/03/21 09:00 08/04/21 08:31 Magnesium Oxide 400 Mg Tablet PO 400 mg DAILY EVELYN Administration Multivitamins 1 tab 08/04/21 08:00 08/04/21 08:31 Multivitamin Tablet PO 1 tab DAILYWM EVELYN Administration Pantoprazole Sodium 40 mg 08/04/21 11:00 08/04/21 11:43 Pantoprazole 40 Mg Vial IVP 40 mg BID EVELYN Administration Pravastatin Sodium 80 mg 08/03/21 21:00 08/03/21 20:23 Pravastatin 40 Mg Tablet PO 80 mg QPM EVELYN Administration Sodium Chloride 10 ml 08/03/21 07:19 08/04/21 11:43 Sodium Chloride Flush 0.9% 10 Ml Syringe IVP 10 ml PRN PRN Administration NEEDED PER PROVIDER ORDERS Sodium Chloride 10 ml 08/03/21 09:00 08/04/21 08:31 Sodium Chloride Flush 0.9% 10 Ml Syringe IVP 10 ml 0100,0900,1700 EVELYN Administration - Lab Result Fish Bone Diagrams: 08/04/21 05:45 08/04/21 05:45 - Additional Planning My Orders: My Active Orders 08/03/21 17:12 Blood Glucose Checks - Eating [RC] 0800,1200,1700,2100 Initiate Hypoglycemia Protocol [RC] .protocol 08/03/21 17:18 Insulin Aspart [NovoLOG] 3 - 11 unit SUBQ 0800,1200,1700,2100 08/03/21 21:00 Insulin Glargine [Lantus Solostar] 20 unit SUBQ QPM Pravastatin [Pravachol] 80 mg PO QPM 08/04/21 General Surgery Consult [CONS] Routine Home Health Referral [CONS] Routine Social Work Consult [CONS] Routine 08/04/21 08:00 Insulin Aspart [NovoLOG] 5 unit SUBQ TIDWM Multivitamin [Theragran] 1 tab PO DAILYWM 08/04/21 09:00 amLODIPine [Norvasc] 10 mg PO DAILY 08/04/21 11:00 Pantoprazole [Protonix] 40 mg IVP BID 08/04/21 11:08 [place] Discontinuation [RC] ONCE 08/04/21 14:00 H&H [HEMOGLOBIN AND HEMATOCRIT] [HEME] Timed 08/04/21 22:00 H&H [HEMOGLOBIN AND HEMATOCRIT] [HEME] Timed 08/05/21 05:00 BMP - BASIC METABOLIC PANEL [CHEM] DAILYLAB CBC - COMP BLD CT W/AUTO DIFF [HEME] DAILYLAB 08/06/21 05:00 BMP - BASIC METABOLIC PANEL [CHEM] DAILYLAB CBC - COMP BLD CT W/AUTO DIFF [HEME] DAILYLAB 08/07/21 05:00 BMP - BASIC METABOLIC PANEL [CHEM] DAILYLAB CBC - COMP BLD CT W/AUTO DIFF [HEME] DAILYLAB Subjective - Subjective Patient Reports: Resting Comfortably, No Complaints Objective Vital Signs: Vital Signs - 24 hr 08/03/21 08/03/21 08/04/21 15:24 20:21 00:23 Temperature 36.9 C 36.5 C 36.6 C Heart Rate [ 82 82 Brachial] Heart Rate [ 77 Monitoring electrodes] Respiratory 16 18 18 Rate Blood Pressure 132/51 H 139/53 H [Left Brachial artery] Blood Pressure 134/52 H [Left Radial artery] O2 Saturation 97 97 97 08/04/21 08/04/21 08:00 11:42 Temperature 36.7 C 36.7 C Heart Rate [ 72 65 Brachial] Heart Rate [ Monitoring electrodes] Respiratory 20 18 Rate Blood Pressure 144/57 H 143/52 H [Left Brachial artery] Blood Pressure [Left Radial artery] O2 Saturation 97 97 Oxygen O2 Source Room air I&O (Last 24 Hrs): Intake and Output Totals x24h 08/02/21 08/03/21 08/04/21 23:59 23:59 23:59 Intake Total 2440 240 Output Total 1200 525 Balance 1240 -285 General: Alert, Oriented x3, Cooperative, No acute distress HEENT: Atraumatic Neck: Supple Lymphatic: no adenopathy Neuro: Alert, Non Focal, Oriented Times 3 Cardiovascular: Regular rate, Normal S1, Normal S2, Other (systolic Murmur) Respiratory: Chest non-tender, No respiratory distress, Breath sounds nml Abdomen: Normal bowel sounds, Soft, No tenderness Extremities: Normal pulses - Results Results: Laboratory Results WBC 4.8 x10^3/uL (4.8-10.8) 08/04/21 05:45 RBC 3.95 10^6/uL (4.20-5.40) L 08/04/21 05:45 RBC 3.96 10^6/uL (4.20-5.40) L 08/04/21 05:45 Hgb 11.5 g/dL (12.0-16.0) L 08/04/21 05:45 Hct 34.9 % (37.0-47.0) L 08/04/21 05:45 MCV 88.4 fL (81.0-99.0) 08/04/21 05:45 MCH 29.1 pg (27.0-31.0) 08/04/21 05:45 MCHC 33.0 g/dL (32.0-36.0) 08/04/21 05:45 RDW 12.7 % (12.0-15.0) 08/04/21 05:45 Plt Count 145 10^3/uL (130-450) 08/04/21 05:45 MPV 10.4 fL (7.9-10.8) 08/04/21 05:45 Reticulocyte % (Auto) 1.90 % (0.5-2.3) 08/04/21 05:45 Neut # (Auto) 3.4 10^3/uL (1.5-6.6) 08/04/21 05:45 Lymph # (Auto) 0.8 10^3/uL (1.5-3.5) L 08/04/21 05:45 [place] # (Auto) 0.6 10^3/uL (0.0-1.0) 08/04/21 05:45 Eos # (Auto) 0.0 10^3/uL (0.0-0.7) 08/04/21 05:45 Baso # (Auto) 0.0 10^3/uL (0.0-0.1) 08/04/21 05:45 Absolute Nucleated RBC 0.00 x10^3/uL 08/04/21 05:45 Nucleated RBC % 0.0 /100WBC 08/04/21 05:45 Absolute Retic 0.075 10^6/uL (0.020-0.110) 08/04/21 05:45 Sodium 137 mmol/L (135-145) 08/04/21 05:45 Potassium 4.0 mmol/L (3.5-5.0) 08/04/21 05:45 Chloride 103 mmol/L (101-111) 08/04/21 05:45 Carbon Dioxide 24 mmol/L (21-32) 08/04/21 05:45 Anion Gap 10.0 (6-13) 08/04/21 05:45 BUN 32 mg/dL (6-20) H 08/04/21 05:45 Creatinine 0.8 mg/dL (0.4-1.0) 08/04/21 05:45 Estimated GFR (MDRD) 68 (>89) L 08/04/21 05:45 Glucose 237 mg/dL (70-100) H 08/04/21 05:45 Estimat Average Glucose 163 mg/dL (70-100) H 08/03/21 03:00 Hemoglobin A1c % 7.3 % (4.27-6.07) H 08/03/21 03:00 Lactic Acid 0.8 mmol/L (0.5-2.2) 08/03/21 06:13 Calcium 8.3 mg/dL (8.5-10.3) L 08/04/21 05:45 Iron 59 ug/dL (28-170) 08/04/21 05:45 TIBC 316 ug/dL (250-450) 08/04/21 05:45 % Saturation 19 % (20-50) L 08/04/21 05:45 Transferrin 226 mg/dL (192-382) 08/04/21 05:45 Ferritin 28.1 ng/mL (11.0-306.8) 08/04/21 05:45 Total Bilirubin 0.5 mg/dL (0.2-1.0) 08/03/21 03:00 AST 24 IU/L (10-42) 08/03/21 03:00 ALT 20 IU/L (10-60) 08/03/21 03:00 Alkaline Phosphatase 66 IU/L (42-121) 08/03/21 03:00 Lactate Dehydrogenase 138 IU/L (91-225) 08/04/21 05:45 Total Creatine Kinase 141 IU/L (22-269) 08/03/21 03:00 Total Creatine Kinase 147 IU/L (22-269) 08/03/21 03:00 Troponin I High Sens 6.8 ng/L (2.3-14.8) 08/03/21 10:55 Total Protein 6.9 g/dL (6.7-8.2) 08/03/21 03:00 Albumin 4.0 g/dL (3.2-5.5) 08/03/21 03:00 Globulin 2.9 g/dL (2.1-4.2) 08/03/21 03:00 Albumin/Globulin Ratio 1.4 (1.0-2.2) 08/03/21 03:00 Lipase 42 U/L (22-51) 08/03/21 03:00 Vitamin B12 477 pg/mL (180-914) 08/04/21 05:45 TSH 1.68 uIU/mL (0.34-5.60) 08/03/21 03:00 Free T4 0.87 ng/dL (0.58-1.64) 08/03/21 03:00 Thyroxine (T4) 8.47 ug/dL (6.09-12.23) 08/03/21 03:00 Urine Color YELLOW 08/03/21 04:53 Urine Clarity CLEAR (CLEAR) 08/03/21 04:53 Urine pH 5.5 PH (5.0-7.5) 08/03/21 04:53 Ur Specific [place] 1.025 (1.002-1.030) 08/03/21 04:53 Urine Protein NEGATIVE mg/dL (NEGATIVE) 08/03/21 04:53 Urine Glucose (UA) NEGATIVE mg/dL (NEGATIVE) 08/03/21 04:53 Urine Ketones NEGATIVE mg/dL (NEGATIVE) 08/03/21 04:53 Urine Occult Blood NEGATIVE (NEGATIVE) 08/03/21 04:53 Urine Nitrite NEGATIVE (NEGATIVE) 08/03/21 04:53 Urine Bilirubin NEGATIVE (NEGATIVE) 08/03/21 04:53 Urine Urobilinogen 0.2 (NORMAL) E.U./dL (NORMAL) 08/03/21 04:53 Ur Leukocyte Esterase NEGATIVE (NEGATIVE) 08/03/21 04:53 Urine RBC None Seen /HPF (0-5) 08/03/21 04:53 Urine WBC 0-3 /HPF (0-5) 08/03/21 04:53 Ur Squamous Epith Cells NONE SEEN (<= Few) 08/03/21 04:53 Urine Bacteria None Seen /HPF (None Seen) 08/03/21 04:53 Urine Culture Comments NOT INDICATED 08/03/21 04:53 Nasal Adenovirus (PCR) NOT DETECTED 08/03/21 04:00 Nasal B. parapertussis DNA (PCR) NOT DETECTED 08/03/21 04:00 Nasal Coronavir 229E PCR NOT DETECTED 08/03/21 04:00 Nasal Coronavir HKU1 PCR NOT DETECTED 08/03/21 04:00 Nasal Coronavir NL63 PCR NOT DETECTED 08/03/21 04:00 Nasal Coronavir OC43 PCR NOT DETECTED 08/03/21 04:00 Nasal Enterovir/Rhinovir PCR NOT DETECTED 08/03/21 04:00 Nasal Influenza B PCR NOT DETECTED 08/03/21 04:00 Nasal Influenza A PCR NOT DETECTED 08/03/21 04:00 Nasal Parainfluen 1 PCR NOT DETECTED 08/03/21 04:00 Nasal Parainfluen 2 PCR NOT DETECTED 08/03/21 04:00 Nasal Parainfluen 3 PCR NOT DETECTED 08/03/21 04:00 Nasal Parainfluen 4 PCR NOT DETECTED 08/03/21 04:00 Nasal RSV (PCR) NOT DETECTED 08/03/21 04:00 Nasal B.pertussis DNA PCR NOT DETECTED 08/03/21 04:00 Nasal C.pneumoniae (PCR) NOT DETECTED 08/03/21 04:00 Christopher Human Metapneumo PCR NOT DETECTED 08/03/21 04:00 Nasal M.pneumoniae (PCR) NOT DETECTED 08/03/21 04:00 Nasal SARS-CoV-2 (PCR) NOT DETECTED 08/03/21 04:00 Stl Occult Blood (IFOB) POSITIVE (NEGATIVE) A 08/04/21 09:05 Last Dose Date UNK 08/03/21 03:00 Last Dose Time K 08/03/21 03:00 Digoxin 0.4 ng/mL 08/03/21 03:00 - Procedures Procedures: Procedures CATARAC PHACOEMULS/ASPIR (05/24/14) INSERT LENS AT CATAR EXT (05/24/14) ABX Reporting Has patient been on IV antibiotics over the past 48 hours?: No Current Medications - Current Medications Current Medications: Active Medications Acetaminophen (Acetaminophen 325 Mg Tablet) 650 mg PO Q4HR PRN PRN Reason: Pain 1 to 4 Amlodipine Besylate (Amlodipine 5 Mg Tablet) 10 mg PO DAILY [facility] Last Admin: 08/04/21 08:31 Dose: 10 mg Carvedilol (Carvedilol 12.5 Mg Tablet) 25 mg PO BIDWM [facility] Last Admin: 08/04/21 08:31 Dose: 25 mg Digoxin (Digoxin 125 Mcg Tablet) 125 mcg PO DAILY [facility] Last Admin: 08/04/21 08:31 Dose: 125 mcg Sodium Chloride (Normal Saline 0.9%) 1,000 mls @ 100 mls/hr IV .Q10H [facility] Stop: 08/05/21 10:59 Insulin Aspart (Insulin Aspart 300 Unit/3 Ml Pen) 3 - 11 unit SUBQ 0800,1200,1700,2100 [facility]; Protocol Last Admin: 08/04/21 11:55 Dose: 3 unit Insulin Aspart (Insulin Aspart 300 Unit/3 Ml Pen) 5 unit SUBQ TIDWM [facility]; Protocol Last Admin: 08/04/21 11:55 Dose: 5 unit Insulin Glargine (Insulin Glargine 300 Unit/3 Ml Pen) 20 unit SUBQ QPM [facility] Last Admin: 08/03/21 20:23 Dose: 20 unit Levetiracetam (Levetiracetam 250 Mg Tablet) 500 mg PO BID [facility] Last Admin: 08/04/21 08:31 Dose: 500 mg Lisinopril (Lisinopril 20 Mg Tablet) 20 mg PO BID [facility] Last Admin: 08/04/21 08:31 Dose: 20 mg Magnesium Oxide (Magnesium Oxide 400 Mg Tablet) 400 mg PO DAILY [facility] Last Admin: 08/04/21 08:31 Dose: 400 mg Multivitamins (Multivitamin Tablet) 1 tab PO DAILYWM [facility] Last Admin: 08/04/21 08:31 Dose: 1 tab Ondansetron HCl (Ondansetron 4 Mg/2 Ml Vial) 4 mg IVP Q6HR PRN PRN Reason: Nausea / Vomiting Pantoprazole Sodium (Pantoprazole 40 Mg Vial) 40 mg IVP BID [facility] Last Admin: 08/04/21 11:43 Dose: 40 mg Pravastatin Sodium (Pravastatin 40 Mg Tablet) 80 mg PO QPM [facility] Last Admin: 08/03/21 20:23 Dose: 80 mg Sodium Chloride (Sodium Chloride Flush 0.9% 10 Ml Syringe) 10 ml IVP PRN PRN PRN Reason: NEEDED PER PROVIDER ORDERS Last Admin: 08/04/21 11:43 Dose: 10 ml Sodium Chloride (Sodium Chloride Flush 0.9% 10 Ml Syringe) 10 ml IVP 0100,0900,1700 [facility] Last Admin: 08/04/21 08:31 Dose: 10 ml Ascorbic Acid [Vitamin C] 1,000 mg PO DAILY 05/02/14 Cholecalciferol (Vitamin D3) [Vitamin D] 1,000 unit PO DAILY 05/02/14 Digoxin [Lanoxin] 125 mcg PO DAILY 05/02/14 Magnesium Oxide [Magox 400] 400 mg PO DAILY 05/02/14 Multivitamin [Multi-Day Vitamins] 1 each PO DAILY 05/02/14 [place]-3/Dha/Epa/Fish Oil [Fish Oil] 1,000 mg PO BID 05/02/14 Vitamin E 400 unit PO DAILY 05/02/14 Glucosam/Chond-Msm1/C/Monty/Bor [Lkwymxh-Yxpyo-LLV Complex Cplt] 1 tab ORAL DAILY 06/28/15 Insulin Glargine,Hum.rec.anlog [Lantus Solostar] 20 units SQ QPM 06/28/15 Liraglutide [Victoza 2-Berhane] 1.8 mg SUBQ DAILY 06/28/15 Pravastatin Sodium 80 mg PO QPM 06/28/15 Amlodipine Besylate [Norvasc] 10 mg PO DAILY 08/03/21 Carvedilol [Coreg] 25 mg PO BIDWM 08/03/21 Insulin Aspart [NovoLOG] 10 unit SUBQ QDDINNER 08/03/21 Insulin Aspart [NovoLOG] 15 unit SUBQ QDBREAKFAST 08/03/21 Insulin Aspart [NovoLOG] 16 unit SUBQ QDLUNCH 08/03/21 Levetiracetam [Keppra] 500 mg PO BID 08/03/21 lisinopriL [Lisinopril] 20 mg PO BID 08/03/21
[2021-08-04 14:01] LABS: HCT - HEMATOCRIT 37.1 % (37.0-47.0); HGB - HEMOGLOBIN 12.1 g/dL (12.0-16.0)
--- NOTE | 2021-08-04 15:07 | PHARMACY PROGRESS NOTE ---
- Best Possible Medication History Admit Date and Time: 08/04/21 1039 Processed by: Pharmacy Medication History completed: Yes Secondary Source(s): Pharmacy records, Insurance records As the person ultimately responsible for medication therapy, providers are able to order a medication from an existing home medication list in [facility] via the "Reconcile Routine" prior to Confirmation of that medication by application support administrator. Such practice is discouraged except when the physician, in their clinical judgment, deems that a medical need exists for a medication without regard to previous use.
[2021-08-04] MEDS: PRAVASTATIN 40 MG TABLET PO SCH (21:30)
[2021-08-04] MEDS: INSULIN GLARGINE 300 UNIT/3 ML PEN SUBQ SCH (21:30)
[2021-08-04 22:14] LABS: HCT - HEMATOCRIT 36.5 % (37.0-47.0); HGB - HEMOGLOBIN 11.9 g/dL (12.0-16.0)
[2021-08-05] MEDS: SODIUM CHLORIDE FLUSH 0.9% 10 ML SYRINGE IVP SCH ×2 (00:17→08:24)
[2021-08-05] MEDS ORDERED: DEXTROSE 5%-0.9% NACL 1,000 ML IV SCH (01:00)
[2021-08-05] MEDS ORDERED: SODIUM CHLORIDE 0.9% 1,000 ML IV SCH (01:00)
[2021-08-05 06:30] LABS: BASOPHILS % (AUTO) 0.3 %; EOSINOPHILS # (AUTO) 0.1 10^3/uL (0.0-0.7); EOSINOPHILS % (AUTO) 1.8 %; HCT - HEMATOCRIT 34.7 % (37.0-47.0); HGB - HEMOGLOBIN 11.2 g/dL (12.0-16.0); LYMPHOCYTES # (AUTO) 1.3 10^3/uL (1.5-3.5); MEAN CORPUSCULAR HGB CONC 32.3 g/dL (32.0-36.0); MEAN CORPUSCULAR VOLUME 89.9 fL (81.0-99.0); MONOCYTES # (AUTO) 0.4 10^3/uL (0.0-1.0); MONOCYTES % (AUTO) 9.9 %; NEUTROPHILS # (AUTO) 2.2 10^3/uL (1.5-6.6); NEUTROPHILS % (AUTO) 55.7 %; PLT - PLATELET COUNT 135 10^3/uL (130-450); RED BLOOD COUNT 3.86 10^6/uL (4.20-5.40); RED CELL DISTRIBUTION WIDTH 13.1 % (12.0-15.0); WHITE BLOOD COUNT 3.9 x10^3/uL (4.8-10.8)
[2021-08-05 06:42] LABS: CALCIUM 8.3 mg/dL (8.5-10.3); CREATININE 0.9 mg/dL (0.4-1.0)
[2021-08-05 08:21] VITALS: BP 147/55
[2021-08-05] MEDS: carvediloL 12.5 MG TABLET PO SCH (08:21)
[2021-08-05] MEDS: levETIRAcetam 250 MG TABLET PO SCH (08:21)
[2021-08-05] MEDS: MULTIVITAMIN TABLET PO SCH (08:21)
[2021-08-05] MEDS: DIGOXIN 125 MCG TABLET PO SCH (08:21)
[2021-08-05] MEDS: amLODIPine 5 MG TABLET PO SCH (08:22)
[2021-08-05] MEDS: lisinopriL 20 MG TABLET PO SCH (08:22)
[2021-08-05] MEDS: MAGNESIUM OXIDE 400 MG TABLET PO SCH (08:22)
[2021-08-05] MEDS: INSULIN ASPART 300 UNIT/3 ML PEN SUBQ SCH ×4 (08:23→12:01)
[2021-08-05] MEDS: PANTOPRAZOLE 40 MG VIAL IVP SCH (08:24)
--- NOTE | 2021-08-05 08:35 | PROVIDER PROGRESS NOTE ---
Assessment/Plan - Current Meds Current Meds: Current Medications Generic Name Dose Route Start Last Admin Trade Name Kalli PRN Reason Stop Dose Admin Amlodipine Besylate 10 mg 08/04/21 09:00 08/05/21 08:22 Amlodipine 5 Mg Tablet PO 10 mg DAILY EVELYN Administration Carvedilol 25 mg 08/03/21 10:00 08/05/21 08:21 Carvedilol 12.5 Mg Tablet PO 25 mg BIDWM EVELYN Administration Digoxin 125 mcg 08/03/21 09:00 08/05/21 08:21 Digoxin 125 Mcg Tablet PO 125 mcg DAILY EVELYN Administration Dextrose/Sodium Chloride 1,000 mls @ 100 mls/hr 08/05/21 01:00 08/05/21 00:20 D5ns IV 08/05/21 10:59 100 mls/hr .Q10H EVELYN Administration Insulin Aspart 3 - 11 unit 08/03/21 17:18 08/05/21 08:23 Insulin Aspart 300 Unit/3 Ml Pen SUBQ Not Given 0800,1200,1700,2100 [facility] Protocol Insulin Aspart 5 unit 08/04/21 08:00 08/04/21 17:04 Insulin Aspart 300 Unit/3 Ml Pen SUBQ 5 unit TIDWM EVELYN Administration Protocol Insulin Glargine 20 unit 08/03/21 21:00 08/04/21 21:30 Insulin Glargine 300 Unit/3 Ml Pen SUBQ 20 unit QPM EVELYN Administration Levetiracetam 500 mg 08/03/21 10:00 08/05/21 08:21 Levetiracetam 250 Mg Tablet PO 500 mg BID EVELYN Administration Lisinopril 20 mg 08/03/21 09:00 08/05/21 08:22 Lisinopril 20 Mg Tablet PO 20 mg BID EVELYN Administration Magnesium Oxide 400 mg 08/03/21 09:00 08/05/21 08:22 Magnesium Oxide 400 Mg Tablet PO 400 mg DAILY EVELYN Administration Multivitamins 1 tab 08/04/21 08:00 08/05/21 08:21 Multivitamin Tablet PO 1 tab DAILYWM EVELYN Administration Pantoprazole Sodium 40 mg 08/04/21 11:00 08/05/21 08:24 Pantoprazole 40 Mg Vial IVP 40 mg BID EVELYN Administration Pravastatin Sodium 80 mg 08/03/21 21:00 08/04/21 21:30 Pravastatin 40 Mg Tablet PO 80 mg QPM EVELYN Administration Sodium Chloride 10 ml 08/03/21 07:19 08/04/21 11:43 Sodium Chloride Flush 0.9% 10 Ml Syringe IVP 10 ml PRN PRN Administration NEEDED PER PROVIDER ORDERS Sodium Chloride 10 ml 08/03/21 09:00 08/05/21 08:24 Sodium Chloride Flush 0.9% 10 Ml Syringe IVP 10 ml 0100,0900,1700 EVELYN Administration - Lab Result Fish Bone Diagrams: 08/05/21 05:55 08/05/21 05:55 Objective Vital Signs: Vital Signs - 24 hr 08/04/21 08/04/21 08/04/21 11:42 15:41 23:35 Temperature 36.7 C 37.0 C 36.7 C Heart Rate [ 65 66 64 Brachial] Respiratory 18 16 16 Rate Blood Pressure 143/52 H 126/50 L [Left Brachial artery] Blood Pressure 133/57 H [Right Brachial artery] O2 Saturation 97 95 98 08/05/21 08:18 Temperature 36.6 C Heart Rate [ 63 Brachial] Respiratory 16 Rate Blood Pressure 147/55 H [Left Brachial artery] Blood Pressure [Right Brachial artery] O2 Saturation Oxygen O2 Source Room air I&O (Last 24 Hrs): Intake and Output Totals x24h 08/03/21 08/04/21 08/05/21 23:59 23:59 23:59 Intake Total 2440 780 Output Total 1200 975 800 Balance 4527 -896 -582 - Results Results: Laboratory Results WBC 3.9 x10^3/uL (4.8-10.8) L 08/05/21 05:55 RBC 3.86 10^6/uL (4.20-5.40) L 08/05/21 05:55 Hgb 11.2 g/dL (12.0-16.0) L 08/05/21 05:55 Hct 34.7 % (37.0-47.0) L 08/05/21 05:55 MCV 89.9 fL (81.0-99.0) 08/05/21 05:55 MCH 29.0 pg (27.0-31.0) 08/05/21 05:55 MCHC 32.3 g/dL (32.0-36.0) 08/05/21 05:55 RDW 13.1 % (12.0-15.0) 08/05/21 05:55 Plt Count 135 10^3/uL (130-450) 08/05/21 05:55 MPV 10.0 fL (7.9-10.8) 08/05/21 05:55 Reticulocyte % (Auto) 1.90 % (0.5-2.3) 08/04/21 05:45 Neut # (Auto) 2.2 10^3/uL (1.5-6.6) 08/05/21 05:55 Lymph # (Auto) 1.3 10^3/uL (1.5-3.5) L 08/05/21 05:55 [place] # (Auto) 0.4 10^3/uL (0.0-1.0) 08/05/21 05:55 Eos # (Auto) 0.1 10^3/uL (0.0-0.7) 08/05/21 05:55 Baso # (Auto) 0.0 10^3/uL (0.0-0.1) 08/05/21 05:55 Absolute Nucleated RBC 0.00 x10^3/uL 08/05/21 05:55 Nucleated RBC % 0.0 /100WBC 08/05/21 05:55 Absolute Retic 0.075 10^6/uL (0.020-0.110) 08/04/21 05:45 Sodium 139 mmol/L (135-145) 08/05/21 05:55 Potassium 4.0 mmol/L (3.5-5.0) 08/05/21 05:55 Chloride 105 mmol/L (101-111) 08/05/21 05:55 Carbon Dioxide 27 mmol/L (21-32) 08/05/21 05:55 Anion Gap 7.0 (6-13) 08/05/21 05:55 BUN 33 mg/dL (6-20) H 08/05/21 05:55 Creatinine 0.9 mg/dL (0.4-1.0) 08/05/21 05:55 Estimated GFR (MDRD) 59 (>89) L 08/05/21 05:55 Glucose 126 mg/dL (70-100) H 08/05/21 05:55 Estimat Average Glucose 163 mg/dL (70-100) H 08/03/21 03:00 Hemoglobin A1c % 7.3 % (4.27-6.07) H 08/03/21 03:00 Lactic Acid 0.8 mmol/L (0.5-2.2) 08/03/21 06:13 Calcium 8.3 mg/dL (8.5-10.3) L 08/05/21 05:55 Iron 59 ug/dL (28-170) 08/04/21 05:45 TIBC 316 ug/dL (250-450) 08/04/21 05:45 % Saturation 19 % (20-50) L 08/04/21 05:45 Transferrin 226 mg/dL (192-382) 08/04/21 05:45 Ferritin 28.1 ng/mL (11.0-306.8) 08/04/21 05:45 Total Bilirubin 0.5 mg/dL (0.2-1.0) 08/03/21 03:00 AST 24 IU/L (10-42) 08/03/21 03:00 ALT 20 IU/L (10-60) 08/03/21 03:00 Alkaline Phosphatase 66 IU/L (42-121) 08/03/21 03:00 Lactate Dehydrogenase 138 IU/L (91-225) 08/04/21 05:45 Total Creatine Kinase 141 IU/L (22-269) 08/03/21 03:00 Total Creatine Kinase 147 IU/L (22-269) 08/03/21 03:00 Troponin I High Sens 6.8 ng/L (2.3-14.8) 08/03/21 10:55 Total Protein 6.9 g/dL (6.7-8.2) 08/03/21 03:00 Albumin 4.0 g/dL (3.2-5.5) 08/03/21 03:00 Globulin 2.9 g/dL (2.1-4.2) 08/03/21 03:00 Albumin/Globulin Ratio 1.4 (1.0-2.2) 08/03/21 03:00 Lipase 42 U/L (22-51) 08/03/21 03:00 Vitamin B12 477 pg/mL (180-914) 08/04/21 05:45 TSH 1.68 uIU/mL (0.34-5.60) 08/03/21 03:00 Free T4 0.87 ng/dL (0.58-1.64) 08/03/21 03:00 Thyroxine (T4) 8.47 ug/dL (6.09-12.23) 08/03/21 03:00 Urine Color YELLOW 08/03/21 04:53 Urine Clarity CLEAR (CLEAR) 08/03/21 04:53 Urine pH 5.5 PH (5.0-7.5) 08/03/21 04:53 Ur Specific [place] 1.025 (1.002-1.030) 08/03/21 04:53 Urine Protein NEGATIVE mg/dL (NEGATIVE) 08/03/21 04:53 Urine Glucose (UA) NEGATIVE mg/dL (NEGATIVE) 08/03/21 04:53 Urine Ketones NEGATIVE mg/dL (NEGATIVE) 08/03/21 04:53 Urine Occult Blood NEGATIVE (NEGATIVE) 08/03/21 04:53 Urine Nitrite NEGATIVE (NEGATIVE) 08/03/21 04:53 Urine Bilirubin NEGATIVE (NEGATIVE) 08/03/21 04:53 Urine Urobilinogen 0.2 (NORMAL) E.U./dL (NORMAL) 08/03/21 04:53 Ur Leukocyte Esterase NEGATIVE (NEGATIVE) 08/03/21 04:53 Urine RBC None Seen /HPF (0-5) 08/03/21 04:53 Urine WBC 0-3 /HPF (0-5) 08/03/21 04:53 Ur Squamous Epith Cells NONE SEEN (<= Few) 08/03/21 04:53 Urine Bacteria None Seen /HPF (None Seen) 08/03/21 04:53 Urine Culture Comments NOT INDICATED 08/03/21 04:53 Nasal Adenovirus (PCR) NOT DETECTED 08/03/21 04:00 Nasal B. parapertussis DNA (PCR) NOT DETECTED 08/03/21 04:00 Nasal Coronavir 229E PCR NOT DETECTED 08/03/21 04:00 Nasal Coronavir HKU1 PCR NOT DETECTED 08/03/21 04:00 Nasal Coronavir NL63 PCR NOT DETECTED 08/03/21 04:00 Nasal Coronavir OC43 PCR NOT DETECTED 08/03/21 04:00 Nasal Enterovir/Rhinovir PCR NOT DETECTED 08/03/21 04:00 Nasal Influenza B PCR NOT DETECTED 08/03/21 04:00 Nasal Influenza A PCR NOT DETECTED 08/03/21 04:00 Nasal Parainfluen 1 PCR NOT DETECTED 08/03/21 04:00 Nasal Parainfluen 2 PCR NOT DETECTED 08/03/21 04:00 Nasal Parainfluen 3 PCR NOT DETECTED 08/03/21 04:00 Nasal Parainfluen 4 PCR NOT DETECTED 08/03/21 04:00 Nasal RSV (PCR) NOT DETECTED 08/03/21 04:00 Nasal B.pertussis DNA PCR NOT DETECTED 08/03/21 04:00 Nasal C.pneumoniae (PCR) NOT DETECTED 08/03/21 04:00 Christopher Human Metapneumo PCR NOT DETECTED 08/03/21 04:00 Nasal M.pneumoniae (PCR) NOT DETECTED 08/03/21 04:00 Nasal SARS-CoV-2 (PCR) NOT DETECTED 08/03/21 04:00 Stl Occult Blood (IFOB) POSITIVE (NEGATIVE) A 08/04/21 09:05 Last Dose Date UNK 08/03/21 03:00 Last Dose Time UNK 08/03/21 03:00 Digoxin 0.4 ng/mL 08/03/21 03:00 - Procedures Procedures: Procedures CATARAC PHACOEMULS/ASPIR (05/24/14) INSERT LENS AT CATAR EXT (05/24/14)
--- NOTE | 2021-08-05 13:22 | DISCHARGE SUMMARY ---
Discharge Summary Admit Date: 08/03/21 Discharge Date: 08/05/21 Discharging Provider: Gilmar Mo Primary Care Provider: Anand Key Code Status: Attempt Resuscitation Condition at Discharge: Stable Discharge Disposition: Home Health Service - DIAGNOSES Admission Diagnoses: Confusion Hypoglycemia Hypothermia Diabetes mellitus Atrial fibrillation History of seizures Hypertension Discharge Diagnoses with Status of Each Condition: Confusion: Acute due to Hypoglycemia. Resolved Hypoglycemia: Acute Resolved Hypothermia: Acute. Resolved Diabetes mellitus: Chronic. Continue home medication. Seen by process description writer. Advised on eating adequately. HgA1C was 7.3 Atrial fibrillation: Continue home medications. To follow up with medical staff director History of seizures: Chronic. Controlled. Continue home medications Hypertension: Chronic. Stable. Continue home medications. - HPI History of Present Illness: This is a 86-years old female with past medical history significant for hypertension, hyperlipidemia, atrial fibrillation, diabetic, history of brain hemorrhage and TIA and seizure Who brought by EMS to the ER for confusion and evaluation for the fall. Now patient is alert and oriented plus 4, her confusion is resolved. Patient report she lives alone but her daughter just live [address] away from her and [facility] her. Patient reported she did not remember why and how she had a fall in the home. EMS did Fingerstick on scene, glucose was 68. pt was given amp of D25, her glucose was increased to 130 then pt's mental status improved and became A&OX4 en route per Triage. pt was also found to have hypothermia in ER even pt was given tayler hugger. CT of head, CXR, and Xray of knee reveals no acute process or fracture. Given above medical conditions, medical team was consulted for admission in observation unit. Discussed the care goal with the patient, patient hope to have full code. - HOSPITAL COURSE Hospital Course: Patient's hypoglycemia was corrected with IV dextrose solution. She was not seen by the dietitian and educated on adequate nutrition while on her diabetic medications which included Victoza and insulin. Her hemoglobin A1c was 7.3. Upon admission she was treated with a bear hugger and her temperatures normalized. With IV hydration her hemoglobin dropped from 15 down to 11.5. For concern about possible bleed she had a Hemoccult test done which was positive. However over 48 hours hemoglobin stayed between 11.2 and 12.1. As a result it was felt that the patient did not have a GI bleed. Her blood pressure was also stable during this time and patient denied any abdominal pain nausea or vomiting. She is being discharged home in stable condition and has been advised to follow- up with her primary care physician within a week or as needed. It is expected that her primary care physician will recheck her hemoglobin. - ALLERGIES Allergies/Adverse Reactions: Allergies Allergy/AdvReac Type Severity Reaction Status Date / Time codeine AdvReac Nausea Verified 08/03/21 04:20 - MEDICATIONS Home Medications: Ambulatory Orders Medication Instructions Recorded Confirmed Ascorbic Acid [Vitamin C] 1,000 mg PO DAILY 05/02/14 08/03/21 Cholecalciferol (Vitamin D3) 1,000 unit PO DAILY 05/02/14 08/03/21 [Vitamin D] Digoxin [Lanoxin] 125 mcg PO DAILY 05/02/14 08/03/21 Magnesium Oxide [Magox 400] 400 mg PO DAILY 05/02/14 08/03/21 Multivitamin [Multi-Day Vitamins] 1 each PO DAILY 05/02/14 08/03/21 [place]-3/Dha/Epa/Fish Oil [Fish Oil 1,000 mg PO BID 05/02/14 08/03/21 Dr 500 mg Softgel] Vitamin E 400 unit PO DAILY 05/02/14 08/03/21 Glucosam/Chond-Msm1/C/Monty/Bor 1 tab ORAL DAILY 06/28/15 08/03/21 [Xxryasa-Lqrlh-ABS Complex Cplt] Insulin Glargine,Hum.rec.anlog 20 units SQ QPM 06/28/15 08/03/21 [Lantus Solostar] Liraglutide [Victoza 2-Berhane] 1.8 mg SUBQ DAILY 06/28/15 08/03/21 Pravastatin Sodium 80 mg PO QPM 06/28/15 08/03/21 Amlodipine Besylate [Norvasc] 10 mg PO DAILY 08/03/21 08/03/21 Carvedilol [Coreg] 25 mg PO BIDWM 08/03/21 08/03/21 Insulin Aspart [NovoLOG] 10 unit SUBQ QDDINNER 08/03/21 08/03/21 Insulin Aspart [NovoLOG] 15 unit SUBQ QDBREAKFAST 08/03/21 08/03/21 Insulin Aspart [NovoLOG] 16 unit SUBQ QDLUNCH 08/03/21 08/03/21 Levetiracetam [Keppra] 500 mg PO BID 08/03/21 08/03/21 lisinopriL [Lisinopril] 20 mg PO BID 08/03/21 08/03/21 - PHYSICAL EXAM AT DISCHARGE General Appearance: positive: No acute distress, Alert Eyes Bilateral: positive: PERRL, EOMI ENT: positive: No signs of dehydration Neck: positive: No JVD, Trachea midline Respiratory: positive: Chest non-tender, No respiratory distress, Breath sounds nml Cardiovascular: positive: Regular rate & rhythm, No murmur Abdomen: positive: Non-tender, No organomegaly, Nml bowel sounds, No distention. negative: Guarding, Rebound Back: positive: Nml inspection Skin: positive: Color nml, No rash, Warm, Dry Extremities: positive: Non-tender, Full ROM, Nml appearance, Pedal edema (trace) Neurologic/Psychiatric: positive: Oriented x3, Mood/affect nml - LABS Result Diagrams: 08/05/21 05:55 08/05/21 05:55 - TIME SPENT Time Spent in Discharge (Minutes): 20
--- NOTE | 2021-08-05 13:22 | Discharge Plan ---
Discharge Plan Problem Reviewed?: Yes Disposition: Home Health Service Condition: Stable Diet: Cardiac Activity Restrictions: Activity as Tolerated Instruction Topics: Hypoglycemia Health Concerns: You were admitted on 08/03/2021 with hypothermia, confusion and hypoglycemia. It was believed that the hypoglycemia caused the confusion and hypothermia. You had been eating very little while taking your diabetic medication which included Victoza and insulin. A tayler hugger was applied which improved your temperature to the normal range. Your blood glucose was corrected accordingly. Noted that your hemoglobin dropped from 15 down to 11.5 however this was thought to be hemodilution from IV hydration. You had a hemoccult blood test done which was positive. Your hemoglobin was monitored over 48 Hours of monitoring your hemoglobin there was no significant change your hemoglobin fluctuated between 11.2 and 12.1. The suspicion for a GI bleed is low. You have not experienced any abdominal pain as well. Consequently you are being discharged. You may follow-up with your primary care physician within 1 week or as needed. Your primary care physician may repeat your CBC and if significantly lower hemoglobin is noted then colonoscopy could be done in the outpatient setting. You were seen by physical therapy and it was determined that you will benefit from home health PT. You which are voiced by social work for [facility]. You will be contacted by them when you arrive home sometime in the following week. The above plan was discussed with you you expressed understanding and are agreeable to the plan. No Smoking: If you smoke, Please STOP! Call for help. Follow-up with: Ronnie Key MD [Primary Care Provider] -
== END 2021-08-05 14:35 | disposition home health service (06) | DRG 639 ==
LOC: EDUNIT# → ED 02:03 → MS2 07:19 → OBSVTOIN 08-04 10:39
PROVIDERS: ADMIT Nurse Practitioner Gerontology; ATTEND Internal Medicine
DX: E11.649 Type 2 diabetes mellitus with hypoglycemia without coma (principal); Z79.4 Long term (current) use of insulin; Z79.899 Other long term (current) drug therapy; S00.81XA Abrasion of other part of head, initial encounter; S80.211A Abrasion, right knee, initial encounter; W06.XXXA Fall from bed, initial encounter; Y92.013 Bedroom of single-family (private) house as the place of occurrence of the external cause; R41.0 Disorientation, unspecified; T68.XXXA Hypothermia, initial encounter; I48.91 Unspecified atrial fibrillation; I10 Essential (primary) hypertension; E78.5 Hyperlipidemia, unspecified; G40.909 Epilepsy, unspecified, not intractable, without status epilepticus; E78.00 Pure hypercholesterolemia, unspecified; Z20.822 Contact with and (suspected) exposure to COVID-19; Z86.73 Personal history of transient ischemic attack (TIA), and cerebral infarction without residual deficits; R19.5 Other fecal abnormalities; Z91.81 History of falling
CPT/HCPCS: 36415; 51702; 70450; 71045; 73560; 80048; 80053; 80162; 80177; 81001; 82274; 82550; 82607; 82728; 83036; 83540; 83605; 83615; 83690; 84436; 84439; 84443; 84466; 84484; 85014; 85018; 85025; 85045; 87040; 87631; 93005; 96361; 96372; 96374; 99285; A9270; G0378; J1650; J1815; 0202U; 87086

== ENCOUNTER 2022-04-04 15:23 | Outpatient (CLI) | payer MEDICARE, OTHER | END 2022-04-04 15:24 | disposition critical access hospital (66) | LOC: EMS 15:23 | DX: R41.0 Disorientation, unspecified (principal); R47.81 Slurred speech; E11.649 Type 2 diabetes mellitus with hypoglycemia without coma | CPT/HCPCS: A0425; A0427 ==

== ENCOUNTER 2022-09-08 04:41 | Outpatient (CLI) | payer MEDICARE, OTHER | END 2022-09-08 04:42 | disposition critical access hospital (66) | LOC: EMS 04:41 | DX: R32 Unspecified urinary incontinence (principal); R42 Dizziness and giddiness; R26.9 Unspecified abnormalities of gait and mobility | CPT/HCPCS: A0425; A0429 ==

== ENCOUNTER 2022-09-08 04:57 | Emergency (ER) | payer MEDICARE, OTHER ==
[2022-09-08] MEDS ORDERED: SODIUM CHLORIDE 0.9% 1,000 ML IV STA (05:16)
--- NOTE | 2022-09-08 05:25 | ED Physician Documentation ---
History of Present Illness - Stated complaint Stated Complaint: LEFT ARM FEELS WEIRD - History obtained from History obtained from: Patient, EMS - Additonal information Additional information: The patient comes to the emergency department via EMS for chief complaint of "not feeling right this morning". She states that she woke up in the middle the night to realize she had urinated in her bed, and but when she got up to go to the bathroom, she felt as though she was disoriented and a little lightheaded and it was hard for her to get going walking. When she did walk, she states that her left leg felt "different". She is not really sure if it was week or not but felt different when she was walking than the right. She does deny any dragging of the leg. The patient states that this feeling of the leg being different, which she thought perhaps was a weak feeling, persisted throughout her ride here but she states it is finally starting to resolve. She states she also has a sense of very slight discomfort in her left chest but she cannot really describe it more than that. She thinks she might be short of breath but is not quite sure. The patient denies any other complaints at this time. She denies history of CVA previously. She has a history of atrial fibrillation but no coronary artery disease that she knows of. 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 HEENT: Tonsil/Adenoidectomy - Present Medications Home Medications: Ambulatory Orders Medication Instructions Recorded Confirmed Ascorbic Acid [Vitamin C] 1,000 mg PO DAILY 05/02/14 08/03/21 Cholecalciferol (Vitamin D3) 1,000 unit PO DAILY 05/02/14 08/03/21 [Vitamin D] Digoxin [Lanoxin] 125 mcg PO DAILY 05/02/14 09/08/22 Magnesium Oxide [Magox 400] 400 mg PO DAILY 05/02/14 09/08/22 Multivitamin [Multi-Day Vitamins] 1 each PO DAILY 05/02/14 08/03/21 [place]-3/Dha/Epa/Fish Oil [Fish Oil 1,000 mg PO BID 05/02/14 08/03/21 Dr 500 mg Softgel] Vitamin E 400 unit PO DAILY 05/02/14 08/03/21 Glucosam/Chond-Msm1/C/Monty/Bor 1 tab ORAL DAILY 06/28/15 08/03/21 [Uivwbeh-Ulkgz-LSH Complex Cplt] Insulin Glargine,Hum.rec.anlog 20 units SQ QPM 06/28/15 08/03/21 [Lantus Solostar] Liraglutide [Victoza 2-Berhane] 1.8 mg SUBQ DAILY 06/28/15 09/08/22 Pravastatin Sodium 80 mg PO QPM 06/28/15 08/03/21 Carvedilol [Coreg] 25 mg PO BIDWM 08/03/21 09/08/22 Insulin Aspart [NovoLOG] 10 unit SUBQ QDDINNER 08/03/21 09/08/22 Insulin Aspart [NovoLOG] 15 unit SUBQ QDBREAKFAST 08/03/21 09/08/22 Insulin Aspart [NovoLOG] 16 unit SUBQ QDLUNCH 08/03/21 09/08/22 Levetiracetam [Keppra] 500 mg PO BID 08/03/21 09/08/22 lisinopriL [Lisinopril] 20 mg PO BID 08/03/21 09/08/22 Nitroglycerin [Nitrostat] 0.4 mg PRN 09/08/22 - Allergies Allergies/Adverse Reactions: Allergies Allergy/AdvReac Type Severity Reaction Status Date / Time codeine AdvReac Nausea Verified 09/08/22 05:32 - Social History Does the pt smoke?: No Smoking Status: Never smoker Does the pt drink ETOH?: Yes Does the pt have substance abuse?: No - Immunizations Immunizations are current?: Yes - POLST Patient has POLST: No PD ED PE NORMAL - Vitals Vital signs reviewed: Yes - General General: Alert and oriented X 3, No acute distress, Well developed/nourished - HEENT HEENT: Atraumatic, PERRL, EOMI, Moist mucous membranes - Neck Neck: Supple, no meningeal sign - Cardiac Cardiac: RRR, No murmur, Strong equal pulses - Respiratory Respiratory: No respiratory distress, Clear bilaterally - Abdomen Abdomen: Soft, Non tender, Non distended - Derm Derm: Normal color, Warm and dry, No rash - Extremities Extremities: No deformity - Neuro Neuro: Alert and oriented X 3, pmo manager 2-12 intact, No motor deficit (5+ and equal strength in bilateral upper and lower extremities.), No sensory deficit, Normal speech - Psych Psych: Normal mood, Normal affect Results - Vitals Vitals: Oxygen O2 Source Room air - EKG (time done) 0517 Rate: Rate (enter#) (61) Rhythm: Atrial flutter [place]: Normal QRS: Normal Ischemia: Normal ST segments, Non specific changes Compare to prior EKG: Old EKG unavailable Computer interpretation: Agree with computer - Labs Labs: Laboratory Tests 09/08/22 09/08/22 09/08/22 05:15 05:15 05:15 WBC 5.5 RBC 5.03 Hgb 14.2 Hct 44.3 MCV 88.1 MCH 28.2 MCHC 32.1 RDW 12.6 Plt Count 146 MPV 9.5 Neut # (Auto) 4.0 Lymph # (Auto) 0.9 L Stark # (Auto) 0.4 Eos # (Auto) 0.1 Baso # (Auto) 0.0 Absolute Nucleated RBC 0.00 Nucleated RBC % 0.0 Sodium 138 Potassium 4.0 Chloride 100 L Carbon Dioxide 28 Anion Gap 10.0 BUN 25 H Creatinine 0.8 Estimated GFR (MDRD) 68 L Glucose 139 H Calcium 9.1 Total Bilirubin 0.9 AST 19 ALT 17 Alkaline Phosphatase 64 Troponin I High Sens 6.7 Total Protein 7.0 Albumin 3.8 Globulin 3.2 Albumin/Globulin Ratio 1.2 Lipase 57 H Urine Color Urine Clarity Urine pH Ur Specific [place] Urine Protein Urine Glucose (UA) Urine Ketones Urine Occult Blood Urine Nitrite Urine Bilirubin Urine Urobilinogen Ur Leukocyte Esterase Ur Microscopic Review Urine Culture Comments Nasal Adenovirus (PCR) Nasal B. parapertussis DNA (PCR) Nasal Coronavir 229E PCR Nasal Coronavir HKU1 PCR Nasal Coronavir NL63 PCR Nasal Coronavir OC43 PCR Nasal Enterovir/Rhinovir PCR Nasal Influenza B PCR Nasal Influenza A PCR Nasal Parainfluen 1 PCR Nasal Parainfluen 2 PCR Nasal Parainfluen 3 PCR Nasal Parainfluen 4 PCR Nasal RSV (PCR) Nasal B.pertussis DNA PCR Nasal C.pneumoniae (PCR) Christopher Human Metapneumo PCR Nasal M.pneumoniae (PCR) Nasal SARS-CoV-2 (PCR) 09/08/22 09/08/22 09/08/22 05:36 06:40 07:07 WBC RBC Hgb Hct MCV MCH MCHC RDW Plt Count MPV Neut # (Auto) Lymph # (Auto) Stark # (Auto) Eos # (Auto) Baso # (Auto) Absolute Nucleated RBC Nucleated RBC % Sodium Potassium Chloride Carbon Dioxide Anion Gap BUN Creatinine Estimated GFR (MDRD) Glucose Calcium Total Bilirubin AST ALT Alkaline Phosphatase Troponin I High Sens 7.3 Total Protein Albumin Globulin Albumin/Globulin Ratio Lipase Urine Color YELLOW Urine Clarity CLEAR Urine pH 7.0 Ur Specific [place] 1.015 Urine Protein NEGATIVE Urine Glucose (UA) NEGATIVE Urine Ketones NEGATIVE Urine Occult Blood NEGATIVE Urine Nitrite NEGATIVE Urine Bilirubin NEGATIVE Urine Urobilinogen 0.2 (NORMAL) Ur Leukocyte Esterase NEGATIVE Ur Microscopic Review NOT INDICATED Urine Culture Comments NOT INDICATED Nasal Adenovirus (PCR) NOT DETECTED Nasal B. parapertussis DNA (PCR) NOT DETECTED Nasal Coronavir 229E PCR NOT DETECTED Nasal Coronavir HKU1 PCR NOT DETECTED Nasal Coronavir NL63 PCR NOT DETECTED Nasal Coronavir OC43 PCR NOT DETECTED Nasal Enterovir/Rhinovir PCR NOT DETECTED Nasal Influenza B PCR NOT DETECTED Nasal Influenza A PCR NOT DETECTED Nasal Parainfluen 1 PCR NOT DETECTED Nasal Parainfluen 2 PCR NOT DETECTED Nasal Parainfluen 3 PCR NOT DETECTED Nasal Parainfluen 4 PCR NOT DETECTED Nasal RSV (PCR) NOT DETECTED Nasal B.pertussis DNA PCR NOT DETECTED Nasal C.pneumoniae (PCR) NOT DETECTED Christopher Human Metapneumo PCR NOT DETECTED Nasal M.pneumoniae (PCR) NOT DETECTED Nasal SARS-CoV-2 (PCR) NOT DETECTED PD Medical Decision Making - ED course Complexity details: reviewed results, re-evaluated patient, considered differential, d/w patient, d/w family ED course: The patient was given a liter of 0.9 normal saline and worked up with laboratory studies including CBC, ER abdominal panel, and troponin, as well as UA, respiratory PCR, chest x-ray, and CT/CT angio of the head and CT angio of the neck. All of these tests were ordered and reviewed by me. The CTs were all unremarkable, and UA and respiratory PCR were negative. CBC and ER abdominal panel showed no significant abnormalities, and troponin was normal. I felt the pt should have a repeat troponin, and this was ordered and pending at this time. I discussed with pt, who is feeling much better, and her family, that I do not find evidence of a stroke or other emergent pathology at this time. If the repeat troponin is negative, I anticipate pt will be able to be discharged home, and pt and family are agreeable to this plan. Pt is signed out to the oncoming EDMD Dr. Solares at change of shift, pending repeat troponin. Departure - Departure Disposition: 01 Home, Self Care Clinical Impression: TIA (transient ischemic attack), Dizziness Condition: Stable Instructions: ED Dizziness UKO, ED Transient Ischemic Attack Comments: Extensive work-up today, including blood work, urinalysis, viral panel, chest x- ray, and CT scans of the head and neck have all looked good. It is not clear exactly what caused your episode of disorientation, lightheadedness, and left side "feeling funny" this morning. It is possible he had a very tiny, brief str ondina which quickly recovered. There is no lasting inflammation to show up on your CT scans at this time. You are feeling much better and you are stable for discharge home. Please consider taking an aspirin each day since you do have the atrial fibrillation and Aspirin has been shown to be effective in preventing strokes. Please follow-up with your primary care physician for further concerns. Discharge Date/Time: 09/08/22 08:17
[2022-09-08 05:28] LABS: BASOPHILS % (AUTO) 0.2 %; EOSINOPHILS # (AUTO) 0.1 10^3/uL (0.0-0.7); EOSINOPHILS % (AUTO) 2.2 %; HCT - HEMATOCRIT 44.3 % (37.0-47.0); HGB - HEMOGLOBIN 14.2 g/dL (12.0-16.0); LYMPHOCYTES # (AUTO) 0.9 10^3/uL (1.5-3.5); LYMPHOCYTES % (AUTO) 17.2 %; MEAN CORPUSCULAR HEMOGLOBIN 28.2 pg (27.0-31.0); MEAN CORPUSCULAR HGB CONC 32.1 g/dL (32.0-36.0); MEAN CORPUSCULAR VOLUME 88.1 fL (81.0-99.0); MEAN PLATELET VOLUME 9.5 fL (7.9-10.8); MONOCYTES # (AUTO) 0.4 10^3/uL (0.0-1.0); MONOCYTES % (AUTO) 7.9 %; NEUTROPHILS % (AUTO) 72.3 %; PLT - PLATELET COUNT 146 10^3/uL (130-450); RED BLOOD COUNT 5.03 10^6/uL (4.20-5.40); RED CELL DISTRIBUTION WIDTH 12.6 % (12.0-15.0); WHITE BLOOD COUNT 5.5 x10^3/uL (4.8-10.8)
[2022-09-08 05:40] LABS: ALBUMIN 3.8 g/dL (3.2-5.5); ALBUMIN/GLOBULIN RATIO 1.2 (1.0-2.2); BILIRUBIN,TOTAL 0.9 mg/dL (0.2-1.0); CALCIUM 9.1 mg/dL (8.5-10.3); CREATININE 0.8 mg/dL (0.4-1.0)
[2022-09-08] MEDS ORDERED: iohexoL-300 100 ML VIAL ONE (05:53)
[2022-09-08] MEDS ORDERED: iohexoL-300 100 ML VIAL IVP ONE (06:34)
[2022-09-08 06:39] LABS: B. PARAPERTUSSIS- RESP PCR PAN NOT DETECTED; B. PERTUSSIS- RESP PCR PANEL NOT DETECTED; C. PNEUMONIAE- RESP PCR PANEL NOT DETECTED; CORONAVIRUS 229E-RESP PCR NOT DETECTED; CORONAVIRUS HKU1-RESP PCR NOT DETECTED; CORONAVIRUS NL63-RESP PCR NOT DETECTED; CORONAVIRUS OC43-RESP PCR NOT DETECTED; HUMAN METAPNEUMOVIRUS NOT DETECTED; INFLUENZA A- RESP PCR PANEL NOT DETECTED; INFLUENZA B - RESP PCR PANEL NOT DETECTED; M. PNEUMONIAE- RESP PCR PANEL NOT DETECTED; PARAINFLUENZA VIRUS 1 NOT DETECTED; PARAINFLUENZA VIRUS 2 NOT DETECTED; PARAINFLUENZA VIRUS 3 NOT DETECTED; PARAINFLUENZA VIRUS 4 NOT DETECTED; RHINOVIRUS/ENTEROVIRUS NOT DETECTED; RSV- RESP PCR PANEL NOT DETECTED; SARS-CoV-2 -RESP PCR PANEL NOT DETECTED
[2022-09-08 06:50] LABS: BILIRUBIN,URINE NEGATIVE (NEGATIVE); CLARITY,URINE CLEAR (CLEAR); GLUCOSE, URINE (UA) NEGATIVE (NEGATIVE); KETONES,URINE (UA) NEGATIVE (NEGATIVE); LEUKOCYTE ESTERASE, URINE NEGATIVE (NEGATIVE); NITRITE,URINE NEGATIVE (NEGATIVE); OCCULT BLOOD,URINE NEGATIVE (NEGATIVE); PROTEIN,URINE NEGATIVE (NEGATIVE); UROBILINOGEN,URINE 0.2 (NORMAL) E.U./dL (NORMAL)
[2022-09-08] MEDS ORDERED: ASPIRIN 325 MG TABLET PO STA (07:13)
--- NOTE | 2022-09-08 07:35 | ED Physician Documentation ---
ED Addendum - Addendum Addendum: 09/08/22 07:34 Repeat troponin test results just now and is insignificantly changed going from 6-7 which are both normal. She remains pain-free. She will be discharged and Dr. Hernandez had already given her the expectation of discharge and verbal instructions and written instructions.
--- NOTE | 2022-09-08 08:13 | XRAY Report ---
PROCEDURE: Chest 1 View X-Ray INDICATIONS: chest pain TECHNIQUE: One view of the chest was acquired. COMPARISON: 01/01/2022. FINDINGS: Surgical changes and devices: None. Lungs and pleura: No pleural effusions or pneumothorax. Lungs are clear. Mediastinum: Mediastinal contours appear normal. Heart size is normal. Bones and chest wall: No suspicious bony lesions. Overlying soft tissues appear unremarkable. IMPRESSION: No acute cardiopulmonary pathology. No discrepancies. Reviewed by: Antonio Perez MD on 09/08/2022 8:12 AM [facility] Approved by: Antonio Perez MD on 09/08/2022 8:12 AM [facility] Station ID: [id number]
--- NOTE | 2022-09-08 08:17 | CT Report ---
PROCEDURE: ANGIO NECK W INDICATIONS: L side weakness CONTRAST: 100 ML OMNI 300 TECHNIQUE: After the administration of intravenous contrast, 1.5 mm axial sections acquired from the aortic arch to the [place] of [place]. Coronal 3-D maximum intensity projection (MIP) and/or volume rendering ref ormats were then performed. For radiation dose reduction, the following was used: automated exposur e control, adjustment of mA and/or kV according to patient size. COMPARISON: None. FINDINGS: Image quality: Excellent. Carotid system: The great vessels demonstrate a conventional anatomy as they arise from the aortic a rch. The origins of the common carotid arteries appear patent. Atherosclerotic disease involving bi lateral carotid bulbs is seen. The common carotid arteries demonstrate normal calibers and courses. The bifurcation regions appear normal bilaterally. The internal carotid arteries demonstrate normal caliber and course. Posterior circulation: The origins of the vertebral arteries appear patent. The more superior porti ons of the vertebral arteries demonstrate normal course and caliber. They join to form a normal appe aring basilar artery. Soft tissues: Visualized neck soft tissues demonstrate no suspicious abnormalities. The thyroid is normal in size and there are no incidental findings. Opacification of left maxillary sinus is seen. Bones: No suspicious bony lesions. Visualized cervical spine appears normally aligned. IMPRESSION: 1. 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 No hemodynamically significant jose nosis or aneurysm is seen in the neck arteries. Sclerotic densities. The estimate of stenosis included in the report of the imaging study was calculated using the NASCET method CLINICAL RECOMMENDATION STATEMENTS: In patients <35 years with an ITN detected on CT, MRI, or extrathyroidal ultrasound, the Committee re commends further evaluation with dedicated thyroid ultrasound if the nodule is "e1 cm and has no susp icious imaging features, and if the patient has normal life expectancy. In patients "e35 years with an ITN detected on CT, MRI, or extrathyroidal ultrasound, the Committee r ecommends further evaluation with dedicated thyroid ultrasound if the nodule is "e1.5 cm and has no s uspicious imaging features, and if the patient has normal life expectancy. (ACR, 2014) Reviewed by: Antonio Perez MD on 09/08/2022 8:16 AM PST Approved by: Antonio Perez MD on 09/08/2022 8:16 AM PST Station ID: [id number]
[2022-09-08 08:18] VITALS: BP 157/66
--- NOTE | 2022-09-08 08:19 | CT Report ---
PROCEDURE: ANGIO HEAD W/WO INDICATIONS: L side weakness CONTRAST: 100 ML OMNI 300 TECHNIQUE: Precontrast 4.5 mm thick angled axial sections acquired from the foramen magnum to the vertex. Afte r the administration of intravenous contrast, 1 mm thick sections acquired through the [place] of [place] is. Postcontrast 4.5 mm thick sections then re-acquired from the foramen magnum to the vertex. 3-di mensional pvzaxhu-lhxfzzmqy-dejmxymfgr (MIP) and/or volume rendering reformats were acquired of the c entral intracranial vasculature. For radiation dose reduction, the following was used: automated ex posure control, adjustment of mA and/or kV according to patient size. COMPARISON: CT head dated 08/03/2021 and 04/04/2022 FINDINGS: Image quality: Excellent. Anterior circulation: Mild atherosclerotic calcifications are seen within the cavernous ICAs bilater ally. Intracranial internal carotid arteries are normal in size and flow. The flow within the paired anterior cerebral arteries is normal and symmetric. The flow within the middle cerebral arteries is normal and symmetric. The anterior communicating artery is seen. No aneurysms are seen. Posterior circulation: Visualized portions of the vertebral arteries demonstrate normal caliber, and join to form a normal appearing basilar artery. origin of both posterior cerebral arteries ar ising from the anterior circulation is seen. Flow within the posterior cerebral arteries is normal an d symmetric. No aneurysms are seen. CSF spaces: Ventricles are normal in size and shape. Basal cisterns are patent. No extra-axial flu id collections. Brain: No midline shift. Age related volume loss and mild white matter chronic small vessel ischemi c changes are seen. No intracranial bleeds or masses. [place]-white matter interface appears intact. Skull and face: Calvarium and facial bones appear intact, without suspicious lesions. Sinuses: Opacification of left sphenoid sinus and maxillary sinus is seen. Bilateral mastoids are wel l aerated. IMPRESSION: 1. No CT evidence of acute intracranial bleed, midline shift or mass effect. No area of abnormal intr acranial enhancement. Area age related volume loss and white matter chronic small vessel ischemic changes unchanged from pr ior study. 3. No hemodynamically significant stenosis or aneurysm is seen in the intracranial circulation. origin of both posterior cerebral arteries which is a normal variant. No discrepancies. Reviewed by: Antonio Perez MD on 09/08/2022 8:18 AM PST Approved by: Antonio Perez MD on 09/08/2022 8:18 AM PST Station ID: [id number]
== END 2022-09-08 08:17 | disposition home or self-care (01) ==
LOC: EDBD → EDUNIT# → ED 04:57
DX: G45.9 Transient cerebral ischemic attack, unspecified (principal); Z20.822 Contact with and (suspected) exposure to COVID-19
CPT/HCPCS: 36415; 70496; 70498; 71045; 80053; 81003; 83690; 84484; 85025; 87633; 93005; 96360; 99284; A9270; Q9967; 81001; 87086

== ENCOUNTER 2023-01-28 15:50 | Outpatient (CLI) | payer MEDICARE, OTHER | END 2023-01-28 23:59 | disposition critical access hospital (66) | LOC: EMS 15:50 | DX: E11.649 Type 2 diabetes mellitus with hypoglycemia without coma (principal); R41.0 Disorientation, unspecified; R61 Generalized hyperhidrosis; Z79.4 Long term (current) use of insulin | CPT/HCPCS: A0425; A0427 ==

== ENCOUNTER 2023-01-28 16:14 | Emergency (ER) | payer MEDICARE, OTHER ==
[2023-01-28 17:04] LABS: BASOPHILS % (AUTO) 0.2 %; EOSINOPHILS # (AUTO) 0.1 10^3/uL (0.0-0.7); EOSINOPHILS % (AUTO) 1.1 %; HCT - HEMATOCRIT 43.3 % (37.0-47.0); HGB - HEMOGLOBIN 14.2 g/dL (12.0-16.0); LYMPHOCYTES # (AUTO) 0.8 10^3/uL (1.5-3.5); LYMPHOCYTES % (AUTO) 12.5 %; MEAN CORPUSCULAR HEMOGLOBIN 29.2 pg (27.0-31.0); MEAN CORPUSCULAR HGB CONC 32.8 g/dL (32.0-36.0); MEAN CORPUSCULAR VOLUME 88.9 fL (81.0-99.0); MEAN PLATELET VOLUME 9.6 fL (7.9-10.8); MONOCYTES # (AUTO) 0.6 10^3/uL (0.0-1.0); MONOCYTES % (AUTO) 8.8 %; NEUTROPHILS # (AUTO) 4.8 10^3/uL (1.5-6.6); NEUTROPHILS % (AUTO) 77.1 %; PLT - PLATELET COUNT 134 10^3/uL (130-450); RED BLOOD COUNT 4.87 10^6/uL (4.20-5.40); RED CELL DISTRIBUTION WIDTH 12.2 % (12.0-15.0); WHITE BLOOD COUNT 6.3 x10^3/uL (4.8-10.8)
[2023-01-28 17:11] LABS: ALBUMIN/GLOBULIN RATIO 1.4 (1.0-2.2); BILIRUBIN,TOTAL 0.6 mg/dL (0.2-1.0); CALCIUM 9.1 mg/dL (8.5-10.3); CREATININE 0.7 mg/dL (0.4-1.0); POTASSIUM 3.4 mmol/L (3.5-5.0); TOTAL PROTEIN 6.9 g/dL (6.7-8.2)
[2023-01-28 17:51] LABS: BILIRUBIN,URINE NEGATIVE (NEGATIVE); GLUCOSE, URINE (UA) 100 mg/dL (NEGATIVE); KETONES,URINE (UA) NEGATIVE (NEGATIVE); LEUKOCYTE ESTERASE, URINE NEGATIVE (NEGATIVE); NITRITE,URINE NEGATIVE (NEGATIVE); OCCULT BLOOD,URINE NEGATIVE (NEGATIVE); PROTEIN,URINE 30 mg/dL (NEGATIVE); UROBILINOGEN,URINE 0.2 (NORMAL) E.U./dL (NORMAL)
[2023-01-28 17:54] LABS: CLARITY,URINE CLEAR (CLEAR)
[2023-01-28 18:00] LABS: BACTERIA,URINE Rare /HPF (None Seen); RBC,URINE 0-5 /HPF (0-5); SQUAMOUS EPITHELIAL CELL,UR RARE Squamous (<= Few); WBC,URINE 0-3 /HPF (0-5)
--- NOTE | 2023-01-28 18:58 | ED Physician Documentation ---
History of Present Illness - Stated complaint Stated Complaint: HYPOGLYCEMIA - Chief complaint Chief Complaint: General - History obtained from History obtained from: Patient - History of Present Illness Timing: Today Pain level max: 0 Pain level now: 0 - Additonal information Additional information: 87-year-old female with a history of diabetes presents to the emergency department for low blood sugar at home today. Reportedly 28 with EMS. Given glucagon and D50 prior to arrival. Patient states that she feels completely normal now. She states she ate lunch earlier than usual and took her insulin a few hours after eating lunch. No fevers. No chills. No nausea or vomiting. No urinary symptoms. No rhinorrhea, cough, congestion. 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 HEENT: Tonsil/Adenoidectomy - Present Medications Home Medications: Ambulatory Orders Medication Instructions Recorded Confirmed Ascorbic Acid [Vitamin C] 1,000 mg PO DAILY 05/02/14 08/03/21 Cholecalciferol (Vitamin D3) 1,000 unit PO DAILY 05/02/14 08/03/21 [Vitamin D] Digoxin [Lanoxin] 125 mcg PO DAILY 05/02/14 09/08/22 Magnesium Oxide [Magox 400] 400 mg PO DAILY 05/02/14 09/08/22 Multivitamin [Multi-Day Vitamins] 1 each PO DAILY 05/02/14 08/03/21 [place]-3/Dha/Epa/Fish Oil [Fish Oil 1,000 mg PO BID 05/02/14 08/03/21 Dr 500 mg Softgel] Vitamin E 400 unit PO DAILY 05/02/14 08/03/21 Glucosam/Chond-Msm1/C/Monty/Bor 1 tab ORAL DAILY 06/28/15 08/03/21 [Mwuvlml-Ukhwv-UOL Complex Cplt] Insulin Glargine,Hum.rec.anlog 20 units SQ QPM 06/28/15 08/03/21 [Lantus Solostar] Liraglutide [Victoza 2-Berhane] 1.8 mg SUBQ DAILY 06/28/15 09/08/22 Pravastatin Sodium 80 mg PO QPM 06/28/15 08/03/21 Carvedilol [Coreg] 25 mg PO BIDWM 08/03/21 09/08/22 Insulin Aspart [NovoLOG] 10 unit SUBQ QDDINNER 08/03/21 09/08/22 Insulin Aspart [NovoLOG] 15 unit SUBQ QDBREAKFAST 08/03/21 09/08/22 Insulin Aspart [NovoLOG] 16 unit SUBQ QDLUNCH 08/03/21 09/08/22 Levetiracetam [Keppra] 500 mg PO BID 08/03/21 09/08/22 lisinopriL [Lisinopril] 20 mg PO BID 08/03/21 09/08/22 Nitroglycerin [Nitrostat] 0.4 mg PRN 09/08/22 - Allergies Allergies/Adverse Reactions: Allergies Allergy/AdvReac Type Severity Reaction Status Date / Time codeine AdvReac Nausea Verified 01/28/23 16:22 - Social History Does the pt smoke?: No Smoking Status: Never smoker Does the pt drink ETOH?: Yes Does the pt have substance abuse?: No - Immunizations Immunizations are current?: Yes - POLST Patient has POLST: No PD ED PE NORMAL - Vitals Vital signs reviewed: Yes - General General: Alert and oriented X 3, No acute distress - HEENT HEENT: PERRL, Moist mucous membranes, Pharynx benign - Neck Neck: Supple, no meningeal sign - Cardiac Cardiac: RRR, Strong equal pulses - Respiratory Respiratory: No respiratory distress, Clear bilaterally - Abdomen Abdomen: Soft, Non tender, Non distended - Derm Derm: Warm and dry - Extremities Extremities: No edema - Neuro Neuro: Alert and oriented X 3, 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, No motor deficit, No sensory deficit, Normal speech Eye Opening: Spontaneous Motor: Obeys Commands Verbal: Oriented GCS Score: 15 - Psych Psych: Normal mood, Normal affect Results - Vitals Vitals: Vital Signs - 24 hr 01/28/23 18:22 Heart Rate 55 L Respiratory 16 Rate Blood Pressure 158/63 H O2 Saturation 99 Oxygen O2 Source Room air - Labs Labs: Laboratory Tests 01/28/23 01/28/2323 14:56 14:56 16:46 WBC 6.3 RBC 4.87 Hgb 14.2 Hct 43.3 MCV 88.9 MCH 29.2 MCHC 32.8 RDW 12.2 Plt Count 134 MPV 9.6 Neut # (Auto) 4.8 Lymph # (Auto) 0.8 L Bonner # (Auto) 0.6 Eos # (Auto) 0.1 Baso # (Auto) 0.0 Absolute Nucleated RBC 0.00 Nucleated RBC % 0.0 Sodium 139 Potassium 3.4 L Chloride 102 Carbon Dioxide 29 Anion Gap 8.0 BUN 24 H Creatinine 0.7 Estimated GFR (MDRD) 79 L Glucose 115 H POC Whole Bld Glucose 122 H Calcium 9.1 Total Bilirubin 0.6 AST 27 ALT 22 Alkaline Phosphatase 61 Total Protein 6.9 Albumin 4.0 Globulin 2.9 Albumin/Globulin Ratio 1.4 Urine Color Urine Clarity Urine pH Ur Specific [place] Urine Protein Urine Glucose (UA) Urine Ketones Urine Occult Blood Urine Nitrite Urine Bilirubin Urine Urobilinogen Ur Leukocyte Esterase Urine RBC Urine WBC Ur Squamous Epith Cells Urine Bacteria Ur Microscopic Review Urine Culture Comments 01/28/23 01/28/23 17:34 18:50 WBC RBC Hgb Hct MCV MCH MCHC RDW Plt Count MPV Neut # (Auto) Lymph # (Auto) [place] # (Auto) Eos # (Auto) Baso # (Auto) Absolute Nucleated RBC Nucleated RBC % Sodium Potassium Chloride Carbon Dioxide Anion Gap BUN Creatinine Estimated GFR (MDRD) Glucose POC Whole Bld Glucose 129 H Calcium Total Bilirubin AST ALT Alkaline Phosphatase Total Protein Albumin Globulin Albumin/Globulin Ratio Urine Color YELLOW Urine Clarity CLEAR Urine pH 7.0 Ur Specific [place] 1.015 Urine Protein 30 H Urine Glucose (UA) 100 H Urine Ketones NEGATIVE Urine Occult Blood NEGATIVE Urine Nitrite NEGATIVE Urine Bilirubin NEGATIVE Urine Urobilinogen 0.2 (NORMAL) Ur Leukocyte Esterase NEGATIVE Urine RBC 0-5 Urine WBC 0-3 Ur Squamous Epith Cells RARE Squamous Urine Bacteria Rare Ur Microscopic Review INDICATED Urine Culture Comments NOT INDICATED PD Medical Decision Making - ED course Complexity details: reviewed results, re-evaluated patient, considered differential, d/w patient, d/w family ED course: 87-year-old female with hypoglycemia prior to arrival. Resolved with D50 and glucagon. Eating and drinking without difficulty here. No recurrent hypoglycemia. No other significant lab abnormalities. Family will be monitoring her at home today and they are comfortable taking her home. She is asymptomatic currently. Patient counseled to make sure that she eats when she takes her insulin. Patient counseled regarding signs and symptoms for which I believe and urgent re-evaluation would be necessary. Patient with good understanding of and agreement to plan and is comfortable going home at this time This document was made in part using voice recognition software. While efforts are made to proofread this document, sound alike and grammatical errors may occur. Departure - Departure Disposition: 01 Home, Self Care Clinical Impression: Hypoglycemia Condition: Good Instructions: ED Diabetes Hypoglycemia Insulin React Follow-Up: Ronnie Key MD [Primary Care Provider] - Within 1 week Comments: Please follow up with your doctor for further care. Continue to check your blood sugar at home. Return if you worsen. Discharge Date/Time: 01/28/23 19:03
[2023-01-28 19:02] VITALS: BP 158/63
== END 2023-01-28 19:03 | disposition home or self-care (01) ==
LOC: EDUNIT# → ED 16:14
DX: E11.649 Type 2 diabetes mellitus with hypoglycemia without coma (principal); Z79.4 Long term (current) use of insulin; Z79.899 Other long term (current) drug therapy
CPT/HCPCS: 36415; 80053; 81001; 81003; 85025; 87086; 99283